=== PATIENT | female | born 1985 | race Native Hawaiian/Other Pacific Islander ===

== ENCOUNTER 2018-02-21 16:31 | Inpatient (IN) | payer OTHER, SELFPAY ==
[2018-02-21 17:09] LABS: #Basophils 0.1 thou/uL (0.0-0.2); #Eosinphils 0.3 thou/uL (0.0-0.7); #Monocytes 0.6 thou/uL (0.11-0.59); #Neutrophils 7.3 thou/uL (1.40-6.50); %Basophils 0.9 % (0.0-1.0); %Eosinophils 2.8 % (0.0-10.0); %Lymphocytes 19.3 % (21.0-51.0); %Monocytes 6.1 % (0.0-10.0); Hemoglobin 12.4 g/dL (12.0-16.0); Mean Corpuscular HGB CONC 34.6 g/dL (32.0-36.0); Mean Corpuscular Hemoglobin 30.7 pg (27.0-31.0); Mean Corpuscular Volume 88.8 fL (78.0-98.0); Mean Platelet Volume 6.9 fL (7.4-10.4); Platelet Count 367 thou/uL (130-400); RBC Distribution Width 11.6 % (11.5-14.5); Red Blood Cell (RBC) Count 4.05 mill/uL (4.20-5.40); White Blood Cell (WBC) Count 10.3 thou/uL (4.8-10.8)
[2018-02-21 17:31] LABS: ALT (SGPT) 9 U/L (8-55); AST (SGOT) 13 U/L (5-34); Albumin 3.7 g/dL (3.5-5.0); Alkaline Phosphatase 145 U/L (40-150); Anion Gap 14 mmol/L (10-20); BUN (Urea Nitrogen) 54 mg/dL (7.0-18.7); Bilirubin, Total 0.4 mg/dL (0.2-1.2); Calc. Creatinine Clearance 0 mL/min (70-130); Carbon Dioxide 15 mmol/L (22-29); Chloride 112 mmol/L (98-107); Estimated GFR-MDRD 7; Globulin 3.9 g/dL (2.4-3.5); Glucose 97 mg/dL (70-105); Potassium 5.2 mmol/L (3.5-5.1); Protein, Total 7.6 g/dL (6.0-8.3); Sodium 136 mmol/L (136-145)
[2018-02-21] MEDS ORDERED: cloNIDine 0.1 MG TAB ONE (21:20)
[2018-02-22] MEDS ORDERED: Acetaminophen 650 MG Suppository PR PRN (00:50)
[2018-02-22] MEDS ORDERED: Acetaminophen 325 MG TAB PO PRN (00:50)
[2018-02-22] MEDS ORDERED: Bisacodyl 5 MG TAB PO PRN (00:50)
[2018-02-22] MEDS ORDERED: Senokot S 8.6-50 MG TAB PO PRN (00:50)
[2018-02-22] MEDS ORDERED: Ondansetron PF 4 MG/2 ML Vial IVP PRN (00:50)
[2018-02-22] MEDS ORDERED: Ondansetron ODT 4 MG TAB PO PRN (00:50)
[2018-02-22] MEDS ORDERED: Labetalol HCl 100 MG/20 ML VIAL SLOW IVP PRN (01:33)
[2018-02-22 04:03] LABS: #Basophils 0.1 thou/uL (0.0-0.2); #Eosinphils 0.3 thou/uL (0.0-0.7); #Lymphocytes 2.8 thou/uL (1.20-3.40); #Monocytes 0.8 thou/uL (0.11-0.59); #Neutrophils 6.5 thou/uL (1.40-6.50); %Basophils 0.8 % (0.0-1.0); %Eosinophils 3.1 % (0.0-10.0); %Lymphocytes 26.3 % (21.0-51.0); %Monocytes 7.3 % (0.0-10.0); %Neutrophils 62.5 % (42.0-75.0); Hemoglobin 11.7 g/dL (12.0-16.0); Mean Corpuscular HGB CONC 34.7 g/dL (32.0-36.0); Mean Corpuscular Hemoglobin 30.9 pg (27.0-31.0); Mean Corpuscular Volume 88.9 fL (78.0-98.0); Mean Platelet Volume 6.8 fL (7.4-10.4); Platelet Count 314 thou/uL (130-400); RBC Distribution Width 11.6 % (11.5-14.5); White Blood Cell (WBC) Count 10.5 thou/uL (4.8-10.8)
[2018-02-22 04:20] LABS: Albumin 3.6 g/dL (3.5-5.0); Anion Gap 13 mmol/L (10-20); BUN (Urea Nitrogen) 56 mg/dL (7.0-18.7); BUN/Creatinine Ratio 8.26; Calc. Creatinine Clearance 0 mL/min (70-130); Calcium 8.2 mg/dL (7.8-10.44); Carbon Dioxide 16 mmol/L (22-29); Chloride 113 mmol/L (98-107); Estimated GFR-MDRD 7; Glucose 82 mg/dL (70-105); Phosphorus 5.9 mg/dL (2.3-4.7); Potassium 5.2 mmol/L (3.5-5.1); Sodium 137 mmol/L (136-145)
[2018-02-22] MEDS ORDERED: Heparin 5,000 UNITS/ML VIAL SC SCH (09:45)
--- NOTE | 2018-02-22 09:53 | ULT ---
BILATERAL RENAL ULTRASOUND: Date: 02/22/18 HISTORY: Nonworking left kidney with chronic kidney disease. TECHNIQUE: Multiplanar Song scale and color Doppler images were obtained in a renal ultrasound. FINDINGS: The left kidney was not visualized. The right kidney is normal in echogenicity, without hydronephrosis or calculus, and measures 12.2 cm in length. Limited visualization of the urinary bladder is unremarkable. IMPRESSION: Nonvisualization of the left kidney. POS: JAYDA
[2018-02-22] MEDS ORDERED: Sodium Bicarbonate 150 MEQ in Dextrose 5% in Water 1,000 ML IV SCH (11:00)
[2018-02-22] MEDS: Heparin 5,000 UNITS/ML VIAL SC SCH ×2 (12:51→21:02)
[2018-02-22] MEDS ORDERED: hydrALAZINE 20 MG/ML VIAL SLOW IVP PRN ×2 (12:53→16:14)
[2018-02-22] MEDS ORDERED: NIFEdipine XL 60 MG TAB PO SCH (13:00)
[2018-02-22 13:07] LABS: BHCG - Serum Negative (NEGATIVE); Pregs Control Background? CLEAR/WHITE (CLR/WHITE); Pregs Control Bar Appear? YES (CONTROL BAR)
--- NOTE | 2018-02-22 13:21 | HP ---
PRIMARY CARE PROVIDER: [facility] in [place]. CHIEF COMPLAINT: Abnormal labs. HISTORY OF PRESENT ILLNESS: Ms. Wade is a pleasant 32-year-old lady, who was seen at [facility] on February 22, 2018. She reports that she was living in [place] last February. At that time, she was hospitalized for nephrolithiasis. She reports having to undergo surgery for that. At that time, she was also told that she had renal failure. She moved recently to this area. She set up primary care with [facility]. About a week ago, she underwent blood work through the primary care provider. She was advised to see work study student. She saw work study student yesterday and was advised to go to the emergency room for further management. She denies any chest pain or shortness of breath. She denies any fevers or chills. She denies any nausea, vomiting, diarrhea, or abdominal pain. REVIEW OF SYSTEMS: All other systems reviewed and found to be negative. PAST MEDICAL HISTORY: Nephrolithiasis and renal failure. PAST SURGICAL HISTORY: Surgery for nephrolithiasis. SOCIAL HISTORY: The patient denies tobacco use, alcohol use, or recreational drug use. FAMILY HISTORY: Kidney disease in mother. ALLERGIES: NO KNOWN DRUG ALLERGIES. CURRENT MEDICATIONS: Coreg 12.5 mg two times a day. PHYSICAL EXAMINATION: GENERAL: Ms. Wade is awake and alert, not in acute distress. VITAL SIGNS: Blood pressure is 191/116, pulse 62, respiratory rate 16, and oxygen saturation 98% on room air. She is afebrile. HEENT: Eyes; no scleral icterus, no conjunctival pallor. ENT; moist mucosal membranes. No oropharyngeal erythema or exudates. NECK: Supple and nontender. Trachea is midline. RESPIRATORY: Accessory muscles of breathing are not active. CHEST: Wall movements are symmetric bilaterally. LUNGS: Clear to auscultation without wheeze, rhonchi, or crepitations. CARDIOVASCULAR: S1 and S2 heard, regular. Peripheral pulses palpable. No carotid bruit. No pericardial rub. ABDOMEN: Soft and nontender. Bowel sounds heard. No hepatomegaly. No splenomegaly. NEUROLOGIC: Cranial nerves 2 through 12 intact, deep tendon reflexes 2+. MUSCULOSKELETAL: Power is 5/5 in all four extremities. SKIN: No rashes or subcutaneous nodules. LYMPHATIC: No cervical lymphadenopathy. PSYCHIATRIC: Normal mood. Normal affect. The patient is oriented to person, place, and time. LABORATORY DATA: Ms. Wade's labs and investigations were reviewed. She had an electrocardiogram, which showed normal sinus rhythm, no ST changes to suggest an acute coronary syndrome. She also had bilateral renal ultrasound, with non-visualization of the left kidney. She has sodium of 137, mildly elevated potassium of 5.2, elevated blood urea nitrogen of 56, elevated creatinine of 6.78, normocytic anemia with hemoglobin of 11.7, and otherwise unremarkable CBC. ASSESSMENT AND PLAN: Ms. Wade is a pleasant 32-year-old lady, who was seen at [facility] on February 22, 2018. Her problem list includes; 1. End-stage renal disease: Ms. Wade is presenting with end-stage renal disease. She is known to have chronic kidney disease, previous parameters are unknown. She will be admitted to the hospital for further management. Nephrology Service is being consulted for possible dialysis. 2. Hyperkalemia: Mild, likely asymptomatic, we will recheck. 3. Hypertensive urgency: We will add p.r.n. antihypertensives to bring her blood pressure down. Many thanks for allowing me to participate in your patient's care. Please feel free to contact me with any questions or concerns. LEVEL OF RISK: Moderate. LEVEL OF COMPLEXITY: Moderate. Job ID: [id number] MTDD
[2018-02-22] MEDS ORDERED: hydrALAZINE 20 MG/ML VIAL ONE (15:31)
[2018-02-22] MEDS ORDERED: hydrALAZINE 25 MG TAB PO SCH (17:30)
[2018-02-22] MEDS: cloNIDine 0.1 MG TAB PO PRN (20:58)
[2018-02-22] MEDS: hydrALAZINE 25 MG TAB PO SCH (21:04)
--- NOTE | 2018-02-22 22:06 | CON ---
DATE OF CONSULTATION: 02/22/2018 NEPHROLOGY CONSULTATION CONSULTING PHYSICIAN: Dr. Patel. REASON FOR CONSULTATION: Acute kidney injury. REASON FOR ADMISSION: Abnormal labs. HISTORY OF PRESENT ILLNESS: This is a 32-year-old female with a history of hypertension and solitary kidney, came to the hospital with abnormal labs. The patient moved here from [place] and last seen her doctor in September, and she had lab work done, which showed creatinine of 6.8 and was told to come and see a forensic nurse and saw Dr. Alcantar yesterday, and since elevated creatinine, she was sent to the ER. The patient denies any symptoms. No nausea or vomiting. No chest pain or palpitation. The patient was told in the past that she does not have working left kidney and only had one solitary kidney, and she probably is close to dialysis. The patient did not follow up much for the last few months. No chest pain or palpitation. No fever or chills. PAST MEDICAL HISTORY: Positive for chronic kidney disease, solitary kidney, nephrolithiasis, and hypertension. PAST SURGICAL HISTORY: Denies any surgeries except for lithotripsies. HOME MEDICATIONS: Not known. ALLERGIES: NO KNOWN DRUG ALLERGIES. SOCIAL HISTORY: No smoking, alcohol, or illicit drug abuse. FAMILY HISTORY: Mom was on dialysis. REVIEW OF SYSTEMS: CONSTITUTIONAL: Negative for weight loss or gain, ability to conduct usual activities. SKIN: Negative for rash, itching. EYES: Negative for double vision, pain. ENT/MOUTH: Negative for nose bleeding, neck stiffness, pain, tenderness. CARDIOVASCULAR: Negative for palpitations, dyspnea on exertion, orthopnea. RESPIRATORY: Negative for shortness of breath, wheezing, cough, hemoptysis, fever or night sweats. GASTROINTESTINAL: Negative for poor appetite, abdominal pain, heartburn, nausea, vomiting, constipation, or diarrhea. GENITOURINARY: Negative for urgency, frequency, dysuria, nocturia. MUSCULOSKELETAL: Negative for pain, swelling. NEUROLOGIC/PSYCHIATRIC: Negative for anxiety, depression. ALLERGY/IMMUNOLOGIC: Negative for skin rash, bleeding tendency. PHYSICAL EXAMINATION: GENERAL: This is an obese female, in no apparent distress. VITAL SIGNS: Temperature 98.1, pulse 62, respiratory rate 18, blood pressure 183/110. HEENT: Atraumatic, normocephalic. Oral mucosa is moist NECK: Supple. CARDIOVASCULAR: S1, S2 heard. Rate and rhythm regular. RESPIRATORY: Clear to auscultation. GASTROINTESTINAL: Abdomen is soft. MUSCULOSKELETAL: No tenderness. No edema. DERMATOLOGIC: No skin rash. NEUROLOGIC: Alert and awake. PSYCHIATRIC: Normal mood and affect. LABORATORY DATA: Hemoglobin is 11.7. Potassium is 5.2, BUN is 56, creatinine is 6.7. ASSESSMENT AND PLAN: 1. Acute kidney injury on chronic kidney disease, stage V versus end-stage renal disease. We will hydrate her and monitor renal ultrasound with solitary kidney. 2. Hyperkalemia. 3. Metabolic acidosis. We will have bicarbonate. 4. Vitamin deficiency. We will start on vitamin D. 5. Secondary hyperparathyroidism. 6. Anemia, mild. Plan is to monitor labs. Might need renal replacement therapy, but the patient is hesitant to start on dialysis. We will follow. Thank you for the consult. Job ID: [id number] MTDD
[2018-02-23 05:35] LABS: Anion Gap 16 mmol/L (10-20); BUN (Urea Nitrogen) 57 mg/dL (7.0-18.7); Calc. Creatinine Clearance 24 mL/min (70-130); Calcium 7.9 mg/dL (7.8-10.44); Carbon Dioxide 18 mmol/L (22-29); Chloride 110 mmol/L (98-107); Estimated GFR-MDRD 7; Glucose 92 mg/dL (70-105); Potassium 4.6 mmol/L (3.5-5.1); Sodium 139 mmol/L (136-145)
[2018-02-23] MEDS ORDERED: Prevnar 13-Val Conj/PF 0.5 ML SYRINGE IM ONE (09:00)
--- NOTE | 2018-02-23 09:42 | CT ---
CT ABDOMEN AND PELVIS WITHOUT CONTRAST: Technique: Multiple contiguous axial images were obtained through the abdomen and pelvis without IV e nhancement. Oral contrast was not given. IMPRESSION: History of kidney stones and UTIs. Endstage renal disease. Comparison: No comparison CTs. Ultrasound of 02-22-18 is reviewed. FINDINGS: The lung bases are clear. Liver, spleen, and pancreas is unremarkable given the limitations of a nonc ontrast study. Gallbladder is mildly distended. There is at least one large peripherally calcified gallstone in the gallbladder fundus measuring 2.6 cm diameter. Adrenal glands are normal. The left kidney is atrophic. Right kidney shows compensatory hypertrophy. There is a low attenuation in the right kidney, poorly e valuated on this noncontrast study. There are at least three small nonobstructing calculi in the lowe r pole collecting structures of the right kidney, all measuring in the 3 mm range. No hydronephrosis identified. Mild stranding surrounding the renal pelvis and proximal right ureter and right perinephr ic stranding suggesting inflammatory process. Right ureter appears normal caliber. The urinary bladder is poorly distended and not well evaluated. Bladder wall appears prominent but is not adequately evaluated due to lack of distention. Small bowel loops normal caliber. Appendix appears normal. Aorta normal caliber. Nonspecific periaort ic lymph nodes are seen. There are aortocaval nodes measuring up to 1 cm. A lymph node just posterior to the right renal artery measures 1.5 cm. Images through the pelvis show an unremarkable uterus and adnexa. IMPRESSION: 1. Cholelithiasis. 2. Atrophic left kidney. 3. Right kidney appears edematous with perinephric stranding and stranding surrounding the proximal r ight ureter suggesting inflammatory change. There are at least three small nonobstructing calculi in the lower pole collecting structures of the right kidney. 4. Nonspecific periaortic and retroperitoneal lymph nodes as described. 5. Evidence of wall thickening, however, not well evaluated due to lack of distention. POS: JAYDA
[2018-02-23] MEDS: hydrALAZINE 25 MG TAB PO SCH ×2 (10:17→21:35)
[2018-02-23] MEDS: NIFEdipine XL 60 MG TAB PO SCH (10:18)
[2018-02-23] MEDS: Heparin 5,000 UNITS/ML VIAL SC SCH ×2 (10:18→21:35)
--- NOTE | 2018-02-23 11:58 | RAD ---
THREE VIEWS RIGHT FOOT: Date: 02-23-18 Comparison: None. History: Right foot pain. FINDINGS: There is mild degenerative change involving the first metatarsal phalangeal joint. There is mild degenerative changes of the first interphalangeal joint. There is prominent enthesophyte formation at the insertion of the Achilles tendon. There is enthesoph yte formation at the origin of the plantar aponeurosis. No acute fracture or dislocation. IMPRESSION: No acute osseous abnormality. Degenerative changes as detailed above. POS: C
[2018-02-23] MEDS ORDERED: predniSONE 20 MG TAB PO SCH (17:30)
[2018-02-23] MEDS ORDERED: CEFAZOLIN/Water 2 GM/20 ML SYRINGE SLOW IVP SCH (17:30)
--- NOTE | 2018-02-23 17:30 | PDOC.PN ---
- Subjective Encounter Start Date: 02/23/18 Encounter Start Time: 08:20 Pt seen for followup re:foot pain. c/o R foot pain since yesterday. - Objective Resuscitation Status - Order Detail: 02/23/18 13:46 Resuscitation Status Routine Resuscitation Status: DNAR: NO Resuscitation Discussed with: patient MAR Reviewed: Yes Vital Signs & Weight: Vital Signs (12 hours) Temp Pulse Resp BP BP Pulse Ox 02/23/18 10:18 98 166/99 H 02/23/18 10:17 98 166/99 H 02/23/18 08:27 99.2 F 98 16 132/88 100 02/23/18 08:00 98 Weight Weight 267 lb 3.2 oz I&O: 02/22/18 02/23/18 02/24/18 06:59 06:59 06:59 Intake Total 100 927 Output Total 500 Balance 100 427 Result Diagrams: 02/22/18 03:47 02/23/18 04:49 EKG Reviewed by me: Yes (Tele: sinus tachycardia) Phys Exam - Physical Examination Morbid obesity HEENT: moist MMs, sclera anicteric, oral pharynx no lesions, 2+ tonsils Neck: no nodes, no JVD, supple, full ROM Respiratory: clear to auscultation bilateral Cardiovascular: RRR, no rub S1, S2 Gastrointestinal: soft, non-tender, no distention, positive bowel sounds Lateral tenderness R foot Neurological: moves all 4 limbs Psychiatric: normal affect, A&O x 3 Dx/Plan (1) Foot pain Code(s): M79.673 - PAIN IN UNSPECIFIED FOOT Status: Acute Comment: nil acute on foot x-rays. Trial low-dose steroids, pt has a h/o gout and takes Aleve usually. (2) End stage renal disease Code(s): N18.6 - END STAGE RENAL DISEASE Status: Acute Comment: creatinine slightly improved - Plan * . Review of Systems - Review of Systems Constitutional: negative: fever, chills, sweats, weakness, malaise Cardiovascular: negative: chest pain, palpitations, orthopnea, paroxysmal nocturnal dyspnea, edema, light headedness Gastrointestinal: negative: Nausea, Vomiting, Abdominal Pain, Diarrhea, Constipation, Melena, Hematochezia Genitourinary: negative: Dysuria, Frequency, Incontinence, Hematuria, Retention Musculoskeletal: Foot Pain. negative: Neck Pain, Shoulder Pain, Arm Pain, Back Pain, Hand Pain, Leg Pain Skin: negative: Rash, Lesions, David, Bruising - Medications/Allergies Allergies/Adverse Reactions: Allergies Allergy/AdvReac Type Severity Reaction Status Date / Time No Known Allergies Allergy Unverified 02/22/18 01:25 Medications: Current Medications Acetaminophen (Tylenol) 650 mg PO Q4H PRN PRN Reason: Headache/Fever/Mild Pain (1-3) Last Admin: 02/22/18 20:59 Dose: 650 mg Acetaminophen (Tylenol) [address] Q4H PRN PRN Reason: Headache/Fever/Mild Pain (1-3) Bisacodyl (Dulcolax) 10 mg PO DAILYPRN PRN PRN Reason: Constipation Cefazolin Sodium (Ancef) 2 gm SLOW IVP ONCALL-OR [facility] Clonidine (Catapres) 0.1 mg PO Q4H PRN PRN Reason: Hypertension Last Admin: 02/22/18 20:58 Dose: 0.1 mg Ergocalciferol (Drisdol) 1.25 mg PO Q7DAYS [facility] Heparin Sodium (Porcine) (Heparin) 5,000 units SC BID [facility] Last Admin: 02/23/18 10:18 Dose: 5,000 units Hydralazine HCl (Apresoline) 10 mg SLOW IVP Q4H PRN PRN Reason: SBP GREATER THAN 160 Hydralazine HCl (Apresoline) 50 mg PO BID [facility] Last Admin: 02/23/18 10:17 Dose: 50 mg Nifedipine (Procardia Xl) 60 mg PO DAILY [facility] Last Admin: 02/23/18 10:18 Dose: 60 mg Non-Formulary Medication (Carvedilol [Coreg]) 12.5 mg PO BID [facility] Ondansetron HCl (Zofran Odt) 4 mg PO Q6H PRN PRN Reason: Nausea/Vomiting Ondansetron HCl (Zofran) 4 mg IVP Q6H PRN PRN Reason: Nausea/Vomiting Last Admin: 02/22/18 21:00 Dose: 4 mg Prednisone (Prednisone) 20 mg PO QAM[facility] Prednisone (Prednisone) 20 mg PO ONE [facility] Senna/Docusate Sodium (Senokot S) 2 tab PO BID PRN PRN Reason: Constipation Sodium Chloride (Flush - Normal Saline) 10 ml IVF Q12HR PRN PRN Reason: Saline Flush Last Admin: 02/23/18 10:19 Dose: 10 ml Sodium Chloride (Flush - Normal Saline) 10 ml IVF PRN PRN PRN Reason: Saline Flush Sodium Chloride (Flush - Normal Saline) 10 ml IVF PRN PRN PRN Reason: Saline Flush
[2018-02-23] MEDS: Acetaminophen 325 MG TAB PO PRN ×2 (17:34→23:55)
[2018-02-23] MEDS: predniSONE 20 MG TAB PO SCH (17:35)
[2018-02-23] MEDS ORDERED: CEFAZOLIN 2 GM/50 ML-DEXTROSE 2 GM in Premix Bag 1 BAG IVPB SCH (17:45)
--- NOTE | 2018-02-23 19:16 | PRG ---
DATE OF SERVICE: 02/23/2018 SUBJECTIVE: Patient was seen and examined at bedside and overnight events noted. Patient denies any shortness of breath or chest pain or palpitation. No history of nausea or vomiting or diarrhea or fever or chills or cramps. OBJECTIVE: GENERAL: This is an obese female, in no apparent distress. VITAL SIGNS: Temperature 99.2. Pulse 78. Respiratory rate . Blood pressure 132/88. HEENT: Atraumatic, normocephalic. Oral mucosa is moist NECK: Supple. CARDIOVASCULAR: S1, S2 heard. Rate and rhythm regular. RESPIRATORY: Clear to auscultation. GASTROINTESTINAL: Abdomen is soft. MUSCULOSKELETAL: No tenderness. No edema. DERMATOLOGIC: No skin rash. NEUROLOGIC: Alert and awake and oriented X3. No focal neurologic deficits. Moving all the extremities. PSYCHIATRIC: Mood and affect normal. LABORATORY DATA: Potassium is 4.6, BUN is 57, and creatinine is 6.5. ASSESSMENT AND PLAN: 1. End-stage renal disease with solitary kidney. Plan is to start her on dialysis. I had discussion with the patient and family, and the patient is agreeable to dialysis. We will contact Surgery for access placement. 2. Hyperkalemia. 3. Metabolic acidosis. 4. Vitamin D deficiency with secondary hyperparathyroidism. I will continue on vitamin D. 5. Anemia, mild. We will monitor. 6. Edema, controlled. Plan is to start her on dialysis. Case Management and Surgery consult placed. Job ID: [id number]
[2018-02-23] MEDS ORDERED: Tuberculin PPD 0.1 ML VIAL I-DERMAL SCH (20:00)
[2018-02-23] MEDS: Carvedilol 6.25 MG TAB PO SCH (21:35)
--- NOTE | 2018-02-23 22:12 | ULT ---
BILATERAL UPPER EXTREMITY VENOUS MAPPING 02/23/18 PROVIDED CLINICAL HISTORY: End-stage renal disease. RIGHT UPPER EXTREMITY BRACHIAL ARTERY: 4 mm RADIAL ARTERY: 3.2 mm ULNAR ARTERY: 1.9 mm CEPHALIC VEIN Proximal Arm: 4.2 mm Mid Arm: 4.4 mm Distal Arm: 3.8 mm Antecubital Fossa: 5.5 mm Proximal Forearm: 3.4 mm Mid Forearm: 3.0 mm Distal Forearm: 2.6 mm BASILIC VEIN Proximal Arm: 5.5 mm Mid Arm: 3.9 mm Distal Arm: 2.9 mm Antecubital Fossa: 2.6 mm Proximal Forearm: 2.7 mm Mid Forearm: 2.3 mm Distal Forearm: 2.3 mm LEFT UPPER EXTREMITY BRACHIAL ARTERY: 4.2 mm RADIAL ARTERY: 3.1 mm ULNAR ARTERY: 1.2 mm CEPHALIC VEIN Proximal Arm: 3.1 mm Mid Arm: 3.5 mm Distal Arm: 3.1 mm Antecubital Fossa: 3.7 mm Proximal Forearm: 2.3 mm Mid Forearm: 1.9 mm Distal Forearm: 1.6 mm BASILIC VEIN Proximal Arm: 4.2 mm Mid Arm: 3.6 mm Distal Arm: 2.9 mm Antecubital Fossa: Not compressible Proximal Forearm: 1.2 mm Mid Forearm: 1.1 mm Distal Forearm: 1.1 mm IMPRESSION: 1. Venous mapping as above. 2. Thrombus within the mid left basilic vein. POS: CHARITO
--- NOTE | 2018-02-24 01:37 | HP ---
HISTORY OF PRESENT ILLNESS: Marta Wade is a 32-year-old female, 5 foot 7 inches, 267 pounds, 41 BMI, single, lives alone, presents reporting that she has taken Motrin 3 to 4 times a day for the last several weeks because of foot pain. Foot x-ray on admission was unremarkable. She was found by primary care physician to have renal failure. She has a history of hypertension. Creatinine 6.51, BUN 7 , potassium 4.6. She has antecubital IV in place that I removed on entering the room. I have been asked by Dr. Lima to place hemodialysis access. ALLERGIES: NONE. SOCIAL HISTORY: Tobacco, none. Alcohol, rarely. MEDICATIONS: 1. Ibuprofen. 2. Coreg 12.5 mg b.i.d. PAST SURGICAL HISTORY: Noncontributory. PAST MEDICAL HISTORY: Hypertension, NSAID use frequently, renal failure, obesity morbid, metabolic syndrome. PHYSICAL EXAMINATION: VITAL SIGNS: Height 5 foot 7 inches, weight 267 pounds, 41 BMI. Temperature 99.2 degrees, heart rate 98, blood pressure 166/99. HEAD, EARS, EYES, NOSE, AND THROAT: Unremarkable. LUNGS: Clear to auscultation. CARDIAC: Regular rate and rhythm without murmur or gallop. ABDOMEN: Soft and nontender. EXTREMITIES: Palpable radial pulses bilaterally, antecubital IV removed left arm. ASSESSMENT AND PLAN: 1. Acute renal failure. We will plan on placement of hemodialysis catheter, cuffed tunneled, tomorrow after adequate n.p.o. status. We will plan on placement of a primary fistula in right or left arm, probably the left as she is right handed pending vein mapping. If the vein mapping is not available in the morning, we will postpone fistula placement till next week. We will plan placement of central line to preserve veins this hospitalization. She understands the risks and benefits and consents. 2. Metabolic syndrome. 3. Morbid obesity. 4. Hypertension. 5. Renal failure. 6. NSAID use. Job ID: [id number]
[2018-02-24] MEDS ORDERED: CEFAZOLIN 2 GM/50 ML-DEXTROSE 2 GM in Premix Bag 1 BAG IVPB SCH (01:45)
[2018-02-24 05:58] LABS: Anion Gap 18 mmol/L (10-20); BUN (Urea Nitrogen) 65 mg/dL (7.0-18.7); Calc. Creatinine Clearance 21 mL/min (70-130); Calcium 8.1 mg/dL (7.8-10.44); Carbon Dioxide 15 mmol/L (22-29); Chloride 111 mmol/L (98-107); Estimated GFR-MDRD 7; Glucose 95 mg/dL (70-105); Potassium 6.5 mmol/L (3.5-5.1); Sodium 137 mmol/L (136-145)
[2018-02-24 06:12] LABS: HBSAB Concentration 6.54 mIU/mL; HBSAg Index 0.19 S/CO (0-0.99); Hep B Core Total Ab Non-Reactive (NonReactive); Hep B Core Total Index 0.16 S/CO (0-0.79); Hep B Surf AB Non-Reactive (NonReactive); Hep B Surf Ag Non-Reactive S/CO (NonReactive); Hep C IgG Ab Non-Reactive (NonReactive); Hep C Index 0.09 S/CO (0-0.79)
[2018-02-24] MEDS: Carvedilol 6.25 MG TAB PO SCH ×2 (06:38→20:38)
[2018-02-24] MEDS: Heparin 5,000 UNITS/ML VIAL SC SCH ×2 (07:22→20:39)
[2018-02-24] MEDS: NIFEdipine XL 60 MG TAB PO SCH (07:22)
[2018-02-24] MEDS: hydrALAZINE 25 MG TAB PO SCH ×2 (07:22→20:39)
[2018-02-24] MEDS ORDERED: Ioversol 68 % 50 ML VIAL ONE (08:18)
[2018-02-24] MEDS ORDERED: Heparin 5,000 UNITS/ML VIAL ONE (08:18)
[2018-02-24] MEDS ORDERED: Protamine Sulfate 50 MG/5 ML VIAL ONE (08:18)
[2018-02-24] MEDS ORDERED: Sodium Chloride 0.9% 10 ML ONE (08:18)
[2018-02-24] MEDS ORDERED: Bupivacaine HCl 0.5%/Epinephrine 1:200,000/PF 30 ml Vial ONE (08:18)
[2018-02-24] MEDS ORDERED: Heparin 10,000 UNITS/1 ML VIAL ONE (08:18)
[2018-02-24] MEDS ORDERED: Lidocaine 2% w/Epinephrine 1:200K 20 ML VIAL ONE (08:18)
[2018-02-24] MEDS ORDERED: Lidocaine 2% PF 5 ML VIAL ONE (08:20)
[2018-02-24] MEDS ORDERED: PROPOFOL 20 ML ONE (08:48)
[2018-02-24] MEDS ORDERED: Fentanyl 100 MCG/2 ML VIAL ONE ×2 (08:48→11:18)
[2018-02-24] MEDS ORDERED: Sodium Chloride 0.9% 20 ML ONE (09:36)
[2018-02-24] MEDS ORDERED: traMADol HCl 50 MG TAB PO PRN (09:40)
[2018-02-24] MEDS ORDERED: Ondansetron PF 4 MG/2 ML Vial ONE (10:58)
[2018-02-24] MEDS ORDERED: PROPOFOL 200 MG/20 ML VIAL ONE (10:58)
[2018-02-24] MEDS ORDERED: Rocuronium Bromide 10 MG/ML (10ML VIAL) ONE (10:58)
[2018-02-24] MEDS ORDERED: PHENYLEPHRINE-NS 100 MCG/ML 10 ML SYRINGE ONE (10:58)
[2018-02-24] MEDS ORDERED: Glycopyrrolate 0.2 MG/ML 5 ML SYRINGE ONE (10:58)
[2018-02-24] MEDS ORDERED: Promethazine HCl 25 MG/ML VIAL SLOW IVP PRN (11:02)
[2018-02-24] MEDS ORDERED: Promethazine HCl 25 MG/ML VIAL IM PRN (11:02)
[2018-02-24] MEDS ORDERED: Ondansetron HCl/PF 4 MG/2 ML Vial IVP PRN (11:02)
--- NOTE | 2018-02-24 12:39 | RAD ---
PORTABLE CHEST: 02/24/2018 PROVIDED CLINICAL HISTORY: Central line placement. COMPARISON: None. FINDINGS: Evaluation is limited by patient body habitus. The lungs are hypoinflated. The cardiac silhouette a ppears within normal limits. A left IJ central line is noted with the tip overlying the expected loc ation of the right atrium. A right IJ hemodialysis is noted, the tips of which overly the expected l ocation of the SVC. No focal consolidation, pleural fluid, or pneumothorax apparent. IMPRESSION: Cardiomegaly without evidence for an acute cardiopulmonary process. POS: [facility]
--- NOTE | 2018-02-24 16:18 | PRG ---
DATE OF SERVICE: SUBJECTIVE: Patient was seen and examined at bedside and overnight events noted. Patient denies shortness of breath or cramps or chest pain or palpitation. No Nausea or vomiting or diarrhea or fever or chills OBJECTIVE: GENERAL: This is an obese female, in no apparent distress. VITAL SIGNS: Temperature 99.7, pulse 76, respiratory rate blood pressure 148/77. Musculoskeletal : No tenderness, No edema HEENT: Atraumatic normocephalic Neck: Supple Cardiovascular: S1S2 heard, Rate and rhythm regular Respiratory: Clear to auscultation Gastrointestinal: Abdomen is soft Dermatologic : No skin rash Neurologic: Alert and awake and oriented X3 No focal neurologic deficits. Moving all the extremities. Psychiatric: Mood and affect normal DIAGNOSTIC DATA: Potassium is 6.5, BUN is 65, creatinine is 7.1. ASSESSMENT AND PLAN: 1. End-stage renal disease with solitary kidney. Plan is to start her on dialysis. 2. Hyperkalemia with metabolic acidosis. 3. Vitamin D deficiency. 4. Anemia. 5. Edema. Plan is to start her on dialysis. I appreciate help from Surgery. Follow with Case Management for outpatient placement for dialysis. Job ID: [id number] [facility]
--- NOTE | 2018-02-24 17:27 | OP ---
DATE OF PROCEDURE: 02/24/2018 PREOPERATIVE DIAGNOSES: 1. End-stage renal disease, probably secondary to NSAID use. 2. Morbid obesity without diabetes or hypertension. POSTOPERATIVE DIAGNOSES: 1. End-stage renal disease, probably secondary to NSAID use. 2. Morbid obesity without diabetes or hypertension. PROCEDURES PERFORMED: 1. Right IJ cuffed tunneled hemodialysis catheter, precurved AngioDynamics cuffed tunneled. 2. Left IJ central line. 3. Ultrasound and fluoroscopy used for placement. 4. Left Lukas fistula, calibrated to 3.5 mm coronary dilator. ANESTHESIA: General, local 0.5% Marcaine with epinephrine, 30 mL mixed with 2% Xylocaine 10 mL. DESCRIPTION OF PROCEDURE: The patient was taken to the operating room, where under general anesthesia, neck and chest were prepared with ChloraPrep and draped in routine fashion. Local anesthetic mixture was infiltrated into the skin and subcutaneous tissue about the operative site. Using ultrasound guidance, the right and left internal jugular vein was cannulated with a trocar and catheter, and J-wire threaded. Trocar and catheter were removed. Skin was incised and enlarged sharply on both sides. Stab incision was made over the right chest. Using the tunneling device, the pre-curved AngioDynamics cuffed-tunneled hemodialysis catheter tunneled between 2 incisions, placed the fabric cuff beneath the skin access site over the chest, secured with 3-0 nylon suture. Sterile dressings applied. Using Seldinger technique, a left IJ triple-lumen catheter was placed, removing the J-wire, securing the catheter with 3-0 nylon. J-wire removed. Each port aspirated blood, flushed with saline solution. Sterile dressings applied. A [id number] size dilators were placed over the J-wire into the internal jugular vein on the right and removed. Dilator and Peel-Away sheath placed over the J-wire into the superior vena cava. J-wire and dilator removed. Catheter placed through the Peel-Away sheath. Peel-Away sheath removed. Fluoroscopic images revealed good line placement. Platysma was approximated with 4-0 Monocryl, skin with subdermal 4-0 Monocryl, and Lynd glue applied. Sterile dressings applied. Each port aspirated blood, flushed with saline solution and heparinized saline solution, 1000 units heparin per mL, indicating the volume of the port. Left upper extremity was prepared with ChloraPrep and draped in routine fashion. Incision was made between the cephalic vein and radial artery longitudinally in the left wrist, carried down to skin and subcutaneous tissue and excellent size cephalic vein and radial artery identified, dissected free, controlled with silastic vessel loops, dividing branches between 4-0 silk ties and clips, ligating the cephalic vein on the hand side with 2-0 silk. The patient was given 6000 units of heparin intravenously. After adequate circulation time, the cephalic vein, which had been spatulated was calibrated to a 3.5 mm coronary dilator without obstruction and then controlled with a bulldog clamp after it was flushed with heparinized saline solution. Radial artery clamped proximally and distally. Longitudinal arteriotomy was made for a 2.5 cm anastomosis between the end cephalic vein, which had been spatulated accordingly to the side radial artery with continuous suture of 6-0 Prolene. Branches were divided between 4-0 silk ties and clips. They were clipped to facilitate maturation. Good hemostasis was noted. The anastomosis was completed. Vascular inflow released and outflow interrogated with Doppler and noting good outflow signals. Subcutaneous tissue was approximated with 3-0 Monocryl, skin with subdermal 4-0 Monocryl. Local anesthetic was infiltrated in the skin and subcutaneous tissue about the operative site. The patient tolerated the procedure well. Job ID: [id number]
--- NOTE | 2018-02-24 17:40 | PDOC.PN ---
- Subjective Encounter Start Date: 02/24/18 Encounter Start Time: 17:39 - Objective Resuscitation Status - Order Detail: 02/23/18 13:46 Resuscitation Status Routine Resuscitation Status: DNAR: NO Resuscitation Discussed with: patient MAR Reviewed: Yes Vital Signs & Weight: Vital Signs (12 hours) Temp Pulse Resp BP BP BP BP 02/24/18 17:12 97.6 F 75 16 154/77 H 02/24/18 11:52 97.4 F L 59 L 15 141/77 H 02/24/18 07:22 98.1 F 59 L 16 123/72 02/24/18 06:38 142/77 H Pulse Ox 02/24/18 17:12 100 02/24/18 11:52 95 02/24/18 07:22 97 02/24/18 06:38 Weight Weight 265 lb 11.2 oz I&O: 02/23/18 02/24/18 02/25/18 06:59 06:59 06:59 Intake Total 927 1520 Output Total 500 400 Balance 427 1120 Result Diagrams: 02/22/18 03:47 02/24/18 05:01 EKG Reviewed by me: Yes (Tele: NSR) Phys Exam - Physical Examination Constitutional: NAD HEENT: moist MMs Neck: supple Respiratory: clear to auscultation bilateral Cardiovascular: RRR L IJ line, R IJ cuffed tunneled dialysis catheter, LUE AV fistula Neurological: moves all 4 limbs Psychiatric: normal affect Dx/Plan (1) Foot pain Code(s): M79.673 - PAIN IN UNSPECIFIED FOOT Status: Acute Comment: Improved with steroids, continue (2) End stage renal disease Code(s): N18.6 - END STAGE RENAL DISEASE Status: Acute Comment: pt has tunneled dialysis catheter and AV fistula and L IJ line placed today for initiation of dialysis. - Plan * . Review of Systems - Review of Systems Cardiovascular: negative: chest pain, orthopnea, paroxysmal nocturnal dyspnea, edema, light headedness Gastrointestinal: negative: Nausea, Vomiting, Abdominal Pain, Diarrhea, Constipation, Melena, Hematochezia - Medications/Allergies Allergies/Adverse Reactions: Allergies Allergy/AdvReac Type Severity Reaction Status Date / Time No Known Allergies Allergy Unverified 02/22/18 01:25 Medications: Current Medications Acetaminophen (Tylenol) 650 mg MT Q4H PRN PRN Reason: Headache/Fever/Mild Pain (1-3) Acetaminophen (Tylenol) 1,000 mg PO Q6H PRN PRN Reason: Moderate to Severe Pain (6-10) Bisacodyl (Dulcolax) 10 mg PO DAILYPRN PRN PRN Reason: Constipation Carvedilol (Coreg) 12.5 mg PO BID [facility] Last Admin: 02/24/18 06:38 Dose: 12.5 mg Clonidine (Catapres) 0.1 mg PO Q4H PRN PRN Reason: Hypertension Last Admin: 02/22/18 20:58 Dose: 0.1 mg Ergocalciferol (Drisdol) 1.25 mg PO Q7DAYS [facility] Heparin Sodium (Porcine) (Heparin) 5,000 units SC BID [facility] Last Admin: 02/24/18 07:22 Dose: Not Given Hydralazine HCl (Apresoline) 10 mg SLOW IVP Q4H PRN PRN Reason: SBP GREATER THAN 160 Hydralazine HCl (Apresoline) 50 mg PO BID [facility] Last Admin: 02/24/18 07:22 Dose: Not Given Cefazolin Sodium/Dextrose 2 gm (/ Device) 50 mls @ 100 mls/hr IVPB ONCALL-OR [facility] Stop: 02/24/18 17:46 Influenza Virus Vaccine Quadrival (Fluzone Quad [id number] Syringe) 0.5 ml IM .ONCE ONE Stop: 02/25/18 09:01 Nifedipine (Procardia Xl) 60 mg PO DAILY [facility] Last Admin: 02/24/18 07:22 Dose: Not Given Read Ppd Test Site 0 each PO 1999 [facility] Stop: 02/26/18 20:01 Ondansetron HCl (Zofran Odt) 4 mg PO Q6H PRN PRN Reason: Nausea/Vomiting Ondansetron HCl (Zofran) 4 mg IVP Q6H PRN PRN Reason: Nausea/Vomiting Last Admin: 02/22/18 21:00 Dose: 4 mg Pneumococcal 13-Valent Conj Vacc (Prevnar) 0.5 ml IM .ONCE ONE Stop: 02/25/18 09:01 Prednisone (Prednisone) 20 mg PO QAM-WM [facility] Last Admin: 02/23/18 17:35 Dose: 20 mg Senna/Docusate Sodium (Senokot S) 2 tab PO BID PRN PRN Reason: Constipation Sodium Chloride (Flush - Normal Saline) 10 ml IVF Q12HR PRN PRN Reason: Saline Flush Last Admin: 02/23/18 21:36 Dose: 10 ml Sodium Chloride (Flush - Normal Saline) 10 ml IVF PRN PRN PRN Reason: Saline Flush Sodium Chloride (Flush - Normal Saline) 10 ml IVF PRN PRN PRN Reason: Saline Flush Tramadol HCl (Ultram) 50 mg PO Q6H PRN PRN Reason: Pain Tramadol HCl (Ultram) 100 mg PO Q6H PRN PRN Reason: Pain
[2018-02-25] MEDS: traMADol HCl 50 MG TAB PO PRN ×3 (02:40→21:24)
[2018-02-25] MEDS: cloNIDine 0.1 MG TAB PO PRN (03:04)
[2018-02-25] MEDS ORDERED: Prevnar 13-Val Conj/PF 0.5 ML SYRINGE IM ONE (09:00)
[2018-02-25] MEDS: Heparin 5,000 UNITS/ML VIAL SC SCH ×2 (09:32→21:26)
[2018-02-25] MEDS: hydrALAZINE 25 MG TAB PO SCH ×2 (09:32→21:26)
[2018-02-25] MEDS: predniSONE 20 MG TAB PO SCH (09:32)
[2018-02-25] MEDS: NIFEdipine XL 60 MG TAB PO SCH (09:32)
[2018-02-25] MEDS: Carvedilol 6.25 MG TAB PO SCH ×2 (09:32→21:25)
[2018-02-25 10:49] LABS: Anion Gap 17 mmol/L (10-20); BUN (Urea Nitrogen) 48 mg/dL (7.0-18.7); Calc. Creatinine Clearance 22 mL/min (70-130); Calcium 7.8 mg/dL (7.8-10.44); Carbon Dioxide 18 mmol/L (22-29); Chloride 106 mmol/L (98-107); Estimated GFR-MDRD 7; Glucose 182 mg/dL (70-105); Potassium 4.7 mmol/L (3.5-5.1); Sodium 136 mmol/L (136-145)
[2018-02-25] MEDS ORDERED: Heparin 1,000 UNITS/ML VIAL ONE (11:11)
--- NOTE | 2018-02-25 13:58 | PDOC.PN ---
- Subjective Encounter Start Date: 02/25/18 Encounter Start Time: 09:20 Pt seen for followup re; end stage renal disease. Right foot pain better. - Objective Resuscitation Status - Order Detail: 02/23/18 13:46 Resuscitation Status Routine Resuscitation Status: DNAR: NO Resuscitation Discussed with: patient KOBI Reviewed: Yes Vital Signs & Weight: Vital Signs (12 hours) Temp Pulse Resp BP BP BP Pulse Ox 02/25/18 09:32 106 H 172/100 H 02/25/18 07:08 99.2 F 106 H 18 130/70 130/70 94 L 02/25/18 04:49 92 149/87 H 02/25/18 04:33 96 172/100 H 02/25/18 04:00 96 172/100 H 02/25/18 03:04 189/112 H 02/25/18 02:30 94 189/112 H Weight Weight 258 lb 6 oz I&O: 02/24/18 02/25/18 02/26/18 06:59 06:59 06:59 Intake Total 1520 970 Output Total 400 1800 Balance 1120 -830 Result Diagrams: 02/22/18 03:47 02/25/18 10:25 Additional Labs: labs reviewed by me Phys Exam - Physical Examination Constitutional: NAD HEENT: moist MMs Neck: supple Respiratory: clear to auscultation bilateral Cardiovascular: RRR Gastrointestinal: soft Neurological: moves all 4 limbs Psychiatric: normal affect Dx/Plan (1) End stage renal disease Code(s): N18.6 - END STAGE RENAL DISEASE Status: Acute Comment: Pt having dialysis today (2) Foot pain Code(s): M79.673 - PAIN IN UNSPECIFIED FOOT Status: Acute Comment: Improved with steroids - Plan * . Review of Systems - Review of Systems Cardiovascular: negative: chest pain, orthopnea, paroxysmal nocturnal dyspnea, edema, light headedness Gastrointestinal: negative: Nausea, Vomiting, Abdominal Pain, Diarrhea, Constipation, Melena, Hematochezia Musculoskeletal: Foot Pain - Medications/Allergies Allergies/Adverse Reactions: Allergies Allergy/AdvReac Type Severity Reaction Status Date / Time No Known Allergies Allergy Unverified 02/22/18 01:25 Medications: Current Medications Acetaminophen (Tylenol) 650 mg OR Q4H PRN PRN Reason: Headache/Fever/Mild Pain (1-3) Acetaminophen (Tylenol) 1,000 mg PO Q6H PRN PRN Reason: Moderate to Severe Pain (6-10) Bisacodyl (Dulcolax) 10 mg PO DAILYPRN PRN PRN Reason: Constipation Carvedilol (Coreg) 12.5 mg PO BID [facility] Last Admin: 02/25/18 09:32 Dose: 12.5 mg Clonidine (Catapres) 0.1 mg PO Q4H PRN PRN Reason: Hypertension Last Admin: 02/25/18 03:04 Dose: 0.1 mg Ergocalciferol (Drisdol) 1.25 mg PO Q7DAYS [facility] Heparin Sodium (Porcine) (Heparin) 5,000 units SC BID [facility] Last Admin: 02/25/18 09:32 Dose: 5,000 units Hydralazine HCl (Apresoline) 10 mg SLOW IVP Q4H PRN PRN Reason: SBP GREATER THAN 160 Last Admin: 02/25/18 04:33 Dose: 10 mg Hydralazine HCl (Apresoline) 50 mg PO BID [facility] Last Admin: 02/25/18 09:32 Dose: 50 mg Nifedipine (Procardia Xl) 60 mg PO DAILY [facility] Last Admin: 02/25/18 09:32 Dose: 60 mg Read Ppd Test Site 0 each PO 1999 [facility] Stop: 02/26/18 20:01 Ondansetron HCl (Zofran Odt) 4 mg PO Q6H PRN PRN Reason: Nausea/Vomiting Ondansetron HCl (Zofran) 4 mg IVP Q6H PRN PRN Reason: Nausea/Vomiting Last Admin: 02/22/18 21:00 Dose: 4 mg Prednisone (Prednisone) 20 mg PO QA-[facility] Last Admin: 02/25/18 09:32 Dose: 20 mg Senna/Docusate Sodium (Senokot S) 2 tab PO BID PRN PRN Reason: Constipation Sodium Chloride (Flush - Normal Saline) 10 ml IVF Q12HR PRN PRN Reason: Saline Flush Last Admin: 02/23/18 21:36 Dose: 10 ml Sodium Chloride (Flush - Normal Saline) 10 ml IVF PRN PRN PRN Reason: Saline Flush Sodium Chloride (Flush - Normal Saline) 10 ml IVF PRN PRN PRN Reason: Saline Flush Tramadol HCl (Ultram) 50 mg PO Q6H PRN PRN Reason: Pain Last Admin: 02/24/18 20:42 Dose: 50 mg Tramadol HCl (Ultram) 100 mg PO Q6H PRN PRN Reason: Pain Last Admin: 02/25/18 09:33 Dose: 100 mg
--- NOTE | 2018-02-25 20:43 | PRG ---
DATE OF SERVICE: 02/25/2018 SUBJECTIVE: Patient was seen and examined at bedside and overnight events noted. Patient denies shortness of breath or cramps or chest pain or palpitation. No Nausea or vomiting or diarrhea or fever or chills. OBJECTIVE: GENERAL: This is an obese female, in no apparent distress. VITAL SIGNS: Temperature 98.3, pulse 90, respiratory rate 19, and blood pressure 111/77. Musculoskeletal : No tenderness, No edema HEENT: Atraumatic normocephalic Neck: Supple Cardiovascular: S1S2 heard, Rate and rhythm regular Respiratory: Clear to auscultation Gastrointestinal: Abdomen is soft Dermatologic : No skin rash Neurologic: Alert and awake and oriented X3 No focal neurologic deficits. Moving all the extremities. Psychiatric: Mood and affect normal DIAGNOSTIC DATA: Potassium is 4.7, BUN is 48, and creatinine is 6.7. ASSESSMENT AND PLAN: 1. End-stage renal disease, continue dialysis. 2. Hyperkalemia. 3. Metabolic acidosis. 4. Vitamin D deficiency with secondary hyperparathyroidism. 5. Anemia. 6. Edema. She is tolerating dialysis well. We will continue dialysis. Follow up with Case Management for outpatient placement. Job ID: [id number] [facility]
--- NOTE | 2018-02-25 21:26 | EKG ---
Test Reason : Blood Pressure : / mmHG Vent. Rate : 079 BPM Atrial Rate : 079 BPM P-R Int : 160 ms QRS Dur : 096 ms QT Int : 438 ms P-R-T Axes : 029 -08 045 degrees QTc Int : 502 ms Normal sinus rhythm Moderate voltage criteria for LVH, may be normal variant Prolonged QT Abnormal ECG Confirmed by RENEA OHARA ([id number]), photo editor NEMO ROGERS ([id number]) on 02/25/2018 9:25:49 PM Referred By: Confirmed By:RENEA OHARA
[2018-02-26] MEDS: READ PPD TEST SITE PO SCH ×2 (02:37→19:55)
[2018-02-26] MEDS: hydrALAZINE 25 MG TAB PO SCH ×2 (09:41→21:05)
[2018-02-26] MEDS: Carvedilol 6.25 MG TAB PO SCH ×2 (09:42→21:05)
[2018-02-26] MEDS: predniSONE 20 MG TAB PO SCH (09:42)
[2018-02-26] MEDS: traMADol HCl 50 MG TAB PO PRN (09:42)
[2018-02-26] MEDS: NIFEdipine XL 60 MG TAB PO SCH (09:42)
[2018-02-26] MEDS: Heparin 5,000 UNITS/ML VIAL SC SCH ×2 (09:46→21:05)
--- NOTE | 2018-02-26 13:30 | PDOC.PN ---
- Subjective Encounter Start Date: 02/26/18 Encounter Start Time: 09:00 Pt seen for followup re: end stage renal disease. Foot pain improving, no complains. - Objective Resuscitation Status - Order Detail: 02/23/18 13:46 Resuscitation Status Routine Resuscitation Status: DNAR: NO Resuscitation Discussed with: patient Vital Signs & Weight: Vital Signs (12 hours) Temp Pulse Resp BP BP BP Pulse Ox 02/26/18 11:49 98.3 F 83 18 101/69 93 L 02/26/18 09:42 87 108/72 02/26/18 09:41 87 02/26/18 08:00 98.5 F 87 18 112/77 95 02/26/18 04:04 98.6 F 82 20 102/70 95 Weight Weight 257 lb 9 oz I&O: 02/25/18 02/26/18 02/27/18 06:59 06:59 06:59 Intake Total 970 1340 Output Total 1800 2000 Balance -830 -660 Result Diagrams: 02/22/18 03:47 02/25/18 10:25 Phys Exam - Physical Examination Morbid obesity HEENT: moist MMs Neck: supple Respiratory: clear to auscultation bilateral Cardiovascular: RRR Gastrointestinal: soft Neurological: moves all 4 limbs Psychiatric: normal affect Dx/Plan (1) End stage renal disease Code(s): N18.6 - END STAGE RENAL DISEASE Status: Acute Comment: Pt tolerated dialysis well yesterday (2) Foot pain Code(s): M79.673 - PAIN IN UNSPECIFIED FOOT Status: Acute Comment: continue steroids - Plan * . Review of Systems - Review of Systems Cardiovascular: negative: chest pain, palpitations, orthopnea, paroxysmal nocturnal dyspnea, edema, light headedness Musculoskeletal: Foot Pain. negative: Neck Pain, Shoulder Pain, Arm Pain, Back Pain, Hand Pain, Leg Pain - Medications/Allergies Allergies/Adverse Reactions: Allergies Allergy/AdvReac Type Severity Reaction Status Date / Time No Known Allergies Allergy Unverified 02/22/18 01:25 Medications: Current Medications Acetaminophen (Tylenol) 650 mg DC Q4H PRN PRN Reason: Headache/Fever/Mild Pain (1-3) Acetaminophen (Tylenol) 1,000 mg PO Q6H PRN PRN Reason: Moderate to Severe Pain (6-10) Bisacodyl (Dulcolax) 10 mg PO DAILYPRN PRN PRN Reason: Constipation Carvedilol (Coreg) 12.5 mg PO BID [facility] Last Admin: 02/26/18 09:42 Dose: 12.5 mg Clonidine (Catapres) 0.1 mg PO Q4H PRN PRN Reason: Hypertension Last Admin: 02/25/18 03:04 Dose: 0.1 mg Ergocalciferol (Drisdol) 1.25 mg PO Q7DAYS [facility] Heparin Sodium (Porcine) (Heparin) 5,000 units SC BID [facility] Last Admin: 02/26/18 09:46 Dose: 5,000 units Hydralazine HCl (Apresoline) 10 mg SLOW IVP Q4H PRN PRN Reason: SBP GREATER THAN 160 Last Admin: 02/25/18 04:33 Dose: 10 mg Hydralazine HCl (Apresoline) 50 mg PO BID [facility] Last Admin: 02/26/18 09:41 Dose: 50 mg Nifedipine (Procardia Xl) 60 mg PO DAILY [facility] Last Admin: 02/26/18 09:42 Dose: 60 mg Read Ppd Test Site 0 each PO 1999 [facility] Stop: 02/26/18 20:01 Last Admin: 02/26/18 02:37 Dose: Not Given Ondansetron HCl (Zofran Odt) 4 mg PO Q6H PRN PRN Reason: Nausea/Vomiting Ondansetron HCl (Zofran) 4 mg IVP Q6H PRN PRN Reason: Nausea/Vomiting Last Admin: 02/22/18 21:00 Dose: 4 mg Prednisone (Prednisone) 20 mg PO QAM-WM [facility] Last Admin: 02/26/18 09:42 Dose: 20 mg Senna/Docusate Sodium (Senokot S) 2 tab PO BID PRN PRN Reason: Constipation Sodium Chloride (Flush - Normal Saline) 10 ml IVF Q12HR PRN PRN Reason: Saline Flush Last Admin: 02/23/18 21:36 Dose: 10 ml Sodium Chloride (Flush - Normal Saline) 10 ml IVF PRN PRN PRN Reason: Saline Flush Sodium Chloride (Flush - Normal Saline) 10 ml IVF PRN PRN PRN Reason: Saline Flush Tramadol HCl (Ultram) 50 mg PO Q6H PRN PRN Reason: Pain Last Admin: 02/24/18 20:42 Dose: 50 mg Tramadol HCl (Ultram) 100 mg PO Q6H PRN PRN Reason: Pain Last Admin: 02/26/18 09:42 Dose: 100 mg
--- NOTE | 2018-02-26 18:56 | PRG ---
DATE OF SERVICE: 02/26/2018 SUBJECTIVE: Patient was seen and examined at bedside and overnight events noted. Patient denies any shortness of breath or chest pain or palpitation. No history of nausea or vomiting or diarrhea or fever or chills or cramps. OBJECTIVE: GENERAL: This is an obese female, in no apparent distress. VITAL SIGNS: Temperature 95, pulse 82, respiratory rate , and blood pressure 101/69. HEENT: Atraumatic, normocephalic. Oral mucosa is moist NECK: Supple. CARDIOVASCULAR: S1, S2 heard. Rate and rhythm regular. RESPIRATORY: Clear to auscultation. GASTROINTESTINAL: Abdomen is soft. MUSCULOSKELETAL: No tenderness. No edema. DERMATOLOGIC: No skin rash. NEUROLOGIC: Alert and awake and oriented X3. No focal neurologic deficits. Moving all the extremities. PSYCHIATRIC: Mood and affect normal. LABORATORY DATA: No labs drawn. ASSESSMENT AND PLAN: 1. End-stage renal disease, continue dialysis as tolerated. Repeat labs in the morning. 2. Hyperkalemia . 3. Anemia. 4. Edema. Recheck labs in the morning. Continue dialysis as tolerated. Follow case management for outpatient placement. Job ID: [id number]
[2018-02-27 05:16] LABS: Anion Gap 16 mmol/L (10-20); BUN (Urea Nitrogen) 67 mg/dL (7.0-18.7); Calc. Creatinine Clearance 20 mL/min (70-130); Calcium 7.4 mg/dL (7.8-10.44); Carbon Dioxide 21 mmol/L (22-29); Chloride 104 mmol/L (98-107); Estimated GFR-MDRD 6; Glucose 88 mg/dL (70-105); Potassium 4.3 mmol/L (3.5-5.1); Sodium 137 mmol/L (136-145)
[2018-02-27] MEDS: Acetaminophen 500 MG TAB PO PRN (05:18)
--- NOTE | 2018-02-27 08:18 | PRG ---
DATE OF SERVICE: 02/27/2018 Marta Wade is doing well this morning. Her left Lukas fistula does not have a thrill or bruit. She is undergoing dialysis. We would recommend more proximal left arm fistula. We will plan that later this morning. She understands risks, benefits, and consents. Job ID: [id number]
[2018-02-27] MEDS: predniSONE 20 MG TAB PO SCH (08:20)
[2018-02-27] MEDS: Carvedilol 6.25 MG TAB PO SCH ×2 (08:20→21:32)
[2018-02-27] MEDS: hydrALAZINE 25 MG TAB PO SCH ×2 (08:21→21:32)
[2018-02-27] MEDS: Heparin 5,000 UNITS/ML VIAL SC SCH ×2 (08:21→21:33)
[2018-02-27] MEDS: NIFEdipine XL 60 MG TAB PO SCH (08:21)
[2018-02-27] MEDS ORDERED: CEFAZOLIN 2 GM/50 ML BAG IVPB SCH (08:30)
--- NOTE | 2018-02-27 10:37 | PRG ---
DATE OF SERVICE: 02/27/2018 SUBJECTIVE: A 32-year-old female being seen for end-stage renal disease. The patient denied any nausea, vomiting, or chest pain. OBJECTIVE: See above. Awake, alert, in no acute distress. VITAL SIGNS: Afebrile. Pulse breathing 16, blood pressure 129/81. GENERAL APPEARANCE AND MENTAL STATUS: Fair. HEAD/NECK: Normocephalic. Atraumatic. EYES: EOMI. No deformity. EARS: Clear. No ulcers. NOSE: Intact. No lesions. MOUTH: Clear. No discharge. THROAT: Clear. No exudate. LUNGS: Clear. No crackles. CARDIAC: S1, S2. No rub. ABDOMEN: Benign. Bowel sounds positive. GENITALIA/RECTUM: Bay absent. BACK/EXTREMITIES: Edema 0+. NEUROLOGICAL: Alert and motor intact. SKIN: LYMPHATICS: LABORATORY DATA: Hemoglobin 11.7. Creatinine 7.46. ASSESSMENT: 1. Stage 6 chronic kidney disease, continue hemodialysis. 2. Hyperkalemia, stable. 3. Metabolic acidosis, stable. I will plan dialysis per schedule of Tuesday, Tuesday, Tuesday. Job ID: [id number]
[2018-02-27] MEDS ORDERED: Heparin 10,000 UNITS/ 10 ML VIAL ONE (11:00)
[2018-02-27] MEDS ORDERED: CEFAZOLIN 2 GM/50 ML BAG ONE (12:47)
[2018-02-27] MEDS ORDERED: Lidocaine 2% PF 5 ML VIAL ONE (12:48)
[2018-02-27] MEDS ORDERED: Protamine Sulfate 50 MG/5 ML VIAL ONE (12:48)
[2018-02-27] MEDS ORDERED: Bupivacaine HCl 0.5%/Epinephrine 1:200,000/PF 30 ml Vial ONE (12:48)
[2018-02-27] MEDS ORDERED: Heparin 5,000 UNITS/ML VIAL ONE (12:48)
[2018-02-27] MEDS ORDERED: Fentanyl 100 MCG/2 ML VIAL ONE ×2 (13:07→15:10)
[2018-02-27] MEDS ORDERED: Lidocaine 2% Jelly 5 ML TUBE ONE (13:16)
[2018-02-27] MEDS ORDERED: Promethazine HCl 25 MG/ML VIAL IM PRN (14:58)
[2018-02-27] MEDS ORDERED: Ondansetron HCl/PF 4 MG/2 ML Vial IVP PRN (14:58)
[2018-02-27] MEDS ORDERED: Promethazine HCl 25 MG/ML VIAL SLOW IVP PRN (14:58)
--- NOTE | 2018-02-27 15:57 | PDOC.PN ---
- Subjective Encounter Start Date: 02/27/18 Encounter Start Time: 09:20 Pt seen for followup re: ESRD. No complaints. - Objective Resuscitation Status - Order Detail: 02/23/18 13:46 Resuscitation Status Routine Resuscitation Status: DNAR: NO Resuscitation Discussed with: patient Vital Signs & Weight: Vital Signs (12 hours) Temp Pulse Resp BP Pulse Ox 02/27/18 08:07 97.8 F 89 15 166/79 H 97 02/27/18 04:20 98.2 F 81 20 129/81 94 L Weight Weight 265 lb I&O: 02/26/18 02/27/18 02/28/18 06:59 06:59 06:59 Intake Total 1340 930 Output Total 1999 Balance -660 930 Result Diagrams: 02/22/18 03:47 02/27/18 04:35 Phys Exam - Physical Examination Morbid obesity HEENT: moist MMs Neck: supple Respiratory: clear to auscultation bilateral Cardiovascular: RRR Gastrointestinal: soft Neurological: moves all 4 limbs Psychiatric: normal affect Dx/Plan (1) End stage renal disease Code(s): N18.6 - END STAGE RENAL DISEASE Status: Acute Comment: Initiated on dialysis (2) Foot pain Code(s): M79.673 - PAIN IN UNSPECIFIED FOOT Status: Acute Comment: will continue steroids - Plan * . Review of Systems - Review of Systems Respiratory: negative: Cough, Shortness of Breath, SOB with Excertion, Pleuritic Pain, Wheezing Cardiovascular: negative: chest pain, palpitations, orthopnea, paroxysmal nocturnal dyspnea, edema, light headedness - Medications/Allergies Allergies/Adverse Reactions: Allergies Allergy/AdvReac Type Severity Reaction Status Date / Time No Known Allergies Allergy Unverified 02/22/18 01:25 Medications: Current Medications Acetaminophen (Tylenol) 1,000 mg PO Q6H PRN PRN Reason: Moderate to Severe Pain (6-10) Last Admin: 02/27/18 05:18 Dose: 1,000 mg Bisacodyl (Dulcolax) 10 mg PO DAILYPRN PRN PRN Reason: Constipation Carvedilol (Coreg) 12.5 mg PO BID [facility] Last Admin: 02/27/18 08:20 Dose: Not Given Cefazolin Sodium/Dextrose (Ancef 2 Gm/50 Ml) 2 gm IVPB ONCALL-OR [facility] Stop: 02/27/18 23:59 Clonidine (Catapres) 0.1 mg PO Q4H PRN PRN Reason: Hypertension Last Admin: 02/25/18 03:04 Dose: 0.1 mg Ergocalciferol (Drisdol) 1.25 mg PO Q7DAYS [facility] Fentanyl (Pacu-Sublimaze) 50 mcg SLOW IVP Q10MIN PRN PRN Reason: Moderate to Severe Pain (6-10) Stop: 02/27/18 17:58 Heparin Sodium (Porcine) (Heparin) 5,000 units SC BID [facility] Last Admin: 02/27/18 08:21 Dose: Not Given Hydralazine HCl (Apresoline) 10 mg SLOW IVP Q4H PRN PRN Reason: SBP GREATER THAN 160 Last Admin: 02/25/18 04:33 Dose: 10 mg Hydralazine HCl (Apresoline) 50 mg PO BID [facility] Last Admin: 02/27/18 08:21 Dose: Not Given Nifedipine (Procardia Xl) 60 mg PO DAILY [facility] Last Admin: 02/27/18 08:21 Dose: Not Given Ondansetron HCl (Zofran Odt) 4 mg PO Q6H PRN PRN Reason: Nausea/Vomiting Ondansetron HCl (Zofran) 4 mg IVP Q6H PRN PRN Reason: Nausea/Vomiting Last Admin: 02/22/18 21:00 Dose: 4 mg Ondansetron HCl (Pacu-Zofran) 4 mg IVP ONE PRN PRN Reason: Nausea/Vomiting Stop: 02/27/18 17:58 Prednisone (Prednisone) 20 mg PO QA-[facility] Last Admin: 02/27/18 08:20 Dose: Not Given Promethazine HCl (Pacu-Phenergan) 6.25 mg SLOW IVP ONE PRN PRN Reason: Nausea/Vomiting Stop: 02/27/18 17:58 Promethazine HCl (Pacu-Phenergan) 6.25 mg IM ONE PRN PRN Reason: Nausea/Vomiting Stop: 02/27/18 17:58 Senna/Docusate Sodium (Senokot S) 2 tab PO BID PRN PRN Reason: Constipation Sodium Chloride (Flush - Normal Saline) 10 ml IVF Q12HR PRN PRN Reason: Saline Flush Last Admin: 02/23/18 21:36 Dose: 10 ml Sodium Chloride (Flush - Normal Saline) 10 ml IVF PRN PRN PRN Reason: Saline Flush Sodium Chloride (Flush - Normal Saline) 10 ml IVF PRN PRN PRN Reason: Saline Flush Tramadol HCl (Ultram) 50 mg PO Q6H PRN PRN Reason: Pain Last Admin: 02/24/18 20:42 Dose: 50 mg Tramadol HCl (Ultram) 100 mg PO Q6H PRN PRN Reason: Pain Last Admin: 02/26/18 09:42 Dose: 100 mg
[2018-02-27] MEDS ORDERED: Dexamethasone 20 MG/5 ML VIAL ONE (16:38)
[2018-02-27] MEDS ORDERED: Glycopyrrolate 0.2 MG/ML 5 ML SYRINGE ONE (16:38)
[2018-02-27] MEDS ORDERED: Rocuronium Bromide 10 MG/ML (10ML VIAL) ONE (16:38)
[2018-02-27] MEDS ORDERED: PHENYLEPHRINE-NS 100 MCG/ML 10 ML SYRINGE ONE (16:38)
[2018-02-27] MEDS ORDERED: Ondansetron PF 4 MG/2 ML Vial ONE (16:38)
[2018-02-27] MEDS ORDERED: PROPOFOL 200 MG/20 ML VIAL ONE (16:38)
[2018-02-27] MEDS ORDERED: Lidocaine 1% PF 5 ML VIAL ONE (16:38)
[2018-02-27] MEDS: traMADol HCl 50 MG TAB PO PRN (17:11)
--- NOTE | 2018-02-27 21:10 | OP ---
DATE OF PROCEDURE: 02/27/2018 PREOPERATIVE DIAGNOSES: End-stage renal disease, morbid obesity, thrombosed left Lukas fistula placed last week, just now started dialysis. POSTOPERATIVE DIAGNOSES: End-stage renal disease, morbid obesity, thrombosed left Lukas fistula placed last week, just now started dialysis. PROCEDURE: Left arm primary fistula, perforating branch antecubital vein to the proximal radial artery with outflow cephalic vein only. 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 ANESTHESIA: General, local 0.5% Marcaine with epinephrine 10 mL, volume used. DESCRIPTION OF PROCEDURE: The patient was taken to the operating room, where under general anesthesia, left upper extremity was prepared with ChloraPrep and draped in routine fashion. Incision was made in the proximal volar forearm longitudinally below the antecubital fossa, carried down through the skin and subcutaneous tissue, antecubital vein identified and dissected free. It was very small, but had an excellent size cephalic vein and a good-sized perforating branch antecubital vein. This was dissected free and branches were tied between clips and 4-0 silk ties and spatulated over branch points, interrogated with coronary dilators passing through a 4 mm coronary dye at the cephalic vein outflow without obstruction. The patient was given 6000 units of heparin intravenously. After adequate circulation time, the brachial ulnar of the proximal artery was clamped with vascular clamps. Longitudinal arteriotomy was made sharply for proximal radial artery, arteriotomy elongated for 2 cm anastomosis, created between the side artery to the end, perforating branch antecubital vein with continuous suture of 6-0 Prolene. After completing the anastomosis, vascular clamps were released and there was good outflow in the cephalic vein upper arm interrogated by Doppler. The patient was given 25 mg intravenously by Anesthesia. Good hemostasis was noted. Subcutaneous tissue was approximated with 3-0 Monocryl, skin with subdermal 4-0 Monocryl, and [place]-glue applied. Local anesthetic was infiltrated in the skin and subcutaneous tissue. The patient tolerated the procedure well. Job ID: [id number]
[2018-02-28] MEDS: predniSONE 20 MG TAB PO SCH (09:03)
[2018-02-28] MEDS: NIFEdipine XL 60 MG TAB PO SCH (09:03)
[2018-02-28] MEDS: hydrALAZINE 25 MG TAB PO SCH ×2 (09:04→20:13)
[2018-02-28] MEDS: Carvedilol 6.25 MG TAB PO SCH ×2 (09:04→20:13)
[2018-02-28] MEDS: Heparin 5,000 UNITS/ML VIAL SC SCH ×2 (09:04→20:13)
--- NOTE | 2018-02-28 10:08 | PRG ---
DATE OF SERVICE: 02/28/2018 SUBJECTIVE: Ms. Wade is doing well today. She has no complaints. Left arm fistula outflow cephalic vein upper arm, good thrill and bruit. Surgical wound looks healthy. At this point, she is doing well. I will see her as needed in this hospitalization. Please call if needed. She should follow up in my office in 3 to 4 weeks. Exercise left arm without restrictions and use. Call if needed in this hospitalization. Job ID: [id number]
[2018-02-28] MEDS: traMADol HCl 50 MG TAB PO PRN (10:59)
--- NOTE | 2018-02-28 12:51 | PRG ---
DATE OF SERVICE: 02/28/2018 SUBJECTIVE: A 32-year-old female being seen for end-stage renal disease. The patient denied any nausea, vomiting, or chest pain. OBJECTIVE: See above. Awake, alert, in no acute distress. VITAL SIGNS: Afebrile. Pulse 69, breathing 16, blood pressure 132/83. GENERAL APPEARANCE AND MENTAL STATUS: Fair. HEAD/NECK: Normocephalic. Atraumatic. EYES: EOMI. No deformity. EARS: Clear. No ulcers. NOSE: Intact. No lesions. MOUTH: Clear. No discharge. THROAT: Clear. No exudate. LUNGS: Clear. No crackles. CARDIAC: S1, S2. No rub. ABDOMEN: Benign. Bowel sounds positive. GENITALIA/RECTUM: Bay absent. BACK/EXTREMITIES: Edema 0+. NEUROLOGICAL: Alert and motor intact. SKIN: LYMPHATICS: LABORATORY DATA: Labs show hemoglobin 11.7. ASSESSMENT: 1. Stage 6 chronic kidney disease, plan dialysis. 2. Hypertension, stable. 3. Anemia, stable. 4. Outpatient discharge planning is in progress. Job ID: [id number]
--- NOTE | 2018-02-28 15:22 | PDOC.PN ---
- Subjective Encounter Start Date: 02/28/18 Encounter Start Time: 15:00 Pt seen for followup re; end stage renal disease. Feels well. Foot pain is better, has slight pain in right knee. - Objective Resuscitation Status - Order Detail: 02/23/18 13:46 Resuscitation Status Routine Resuscitation Status: DNAR: NO Resuscitation Discussed with: patient KOBI Reviewed: Yes Vital Signs & Weight: Vital Signs (12 hours) Temp Pulse Resp BP BP BP Pulse Ox 02/28/18 12:00 98.1 F 78 16 147/85 H 97 02/28/18 09:04 67 138/83 93 L 02/28/18 09:03 67 138/83 02/28/18 08:00 98.3 F 67 15 138/83 93 L 02/28/18 04:00 98.3 F 67 18 146/83 H 96 Weight Weight 259 lb 6.4 oz I&O: 02/27/18 02/28/18 03/01/18 06:59 06:59 06:59 Intake Total 930 1480 Balance 930 1480 Result Diagrams: 02/22/18 03:47 02/27/18 04:35 Additional Labs: Labs reviewed by me Phys Exam - Physical Examination Constitutional: NAD HEENT: moist MMs Neck: supple Respiratory: clear to auscultation bilateral Cardiovascular: RRR Gastrointestinal: soft Neurological: moves all 4 limbs Psychiatric: normal affect Dx/Plan (1) End stage renal disease Code(s): N18.6 - END STAGE RENAL DISEASE Status: Acute Comment: continue dialysis (2) Foot pain Code(s): M79.673 - PAIN IN UNSPECIFIED FOOT Status: Acute Comment: will discontinue steroids, start PRN tramadol - Plan * . Review of Systems - Review of Systems Cardiovascular: negative: chest pain, palpitations, orthopnea, paroxysmal nocturnal dyspnea, edema, light headedness Gastrointestinal: negative: Nausea, Vomiting, Abdominal Pain, Diarrhea, Constipation, Melena, Hematochezia Musculoskeletal: Other (right knee pain) - Medications/Allergies Allergies/Adverse Reactions: Allergies Allergy/AdvReac Type Severity Reaction Status Date / Time No Known Allergies Allergy Unverified 02/22/18 01:25 Medications: Current Medications Acetaminophen (Tylenol) 1,000 mg PO Q6H PRN PRN Reason: Moderate to Severe Pain (6-10) Last Admin: 02/27/18 05:18 Dose: 1,000 mg Bisacodyl (Dulcolax) 10 mg PO DAILYPRN PRN PRN Reason: Constipation Carvedilol (Coreg) 12.5 mg PO BID [facility] Last Admin: 02/28/18 09:04 Dose: 12.5 mg Clonidine (Catapres) 0.1 mg PO Q4H PRN PRN Reason: Hypertension Last Admin: 02/25/18 03:04 Dose: 0.1 mg Ergocalciferol (Drisdol) 1.25 mg PO Q7DAYS [facility] Heparin Sodium (Porcine) (Heparin) 5,000 units SC BID [facility] Last Admin: 02/28/18 09:04 Dose: 5,000 units Hydralazine HCl (Apresoline) 10 mg SLOW IVP Q4H PRN PRN Reason: SBP GREATER THAN 160 Last Admin: 02/25/18 04:33 Dose: 10 mg Hydralazine HCl (Apresoline) 50 mg PO BID [facility] Last Admin: 02/28/18 09:04 Dose: 50 mg Nifedipine (Procardia Xl) 60 mg PO DAILY [facility] Last Admin: 02/28/18 09:03 Dose: 60 mg Ondansetron HCl (Zofran Odt) 4 mg PO Q6H PRN PRN Reason: Nausea/Vomiting Ondansetron HCl (Zofran) 4 mg IVP Q6H PRN PRN Reason: Nausea/Vomiting Last Admin: 02/22/18 21:00 Dose: 4 mg Prednisone (Prednisone) 20 mg PO QAM[facility] Last Admin: 02/28/18 09:03 Dose: 20 mg Senna/Docusate Sodium (Senokot S) 2 tab PO BID PRN PRN Reason: Constipation Sodium Chloride (Flush - Normal Saline) 10 ml IVF Q12HR PRN PRN Reason: Saline Flush Last Admin: 02/23/18 21:36 Dose: 10 ml Sodium Chloride (Flush - Normal Saline) 10 ml IVF PRN PRN PRN Reason: Saline Flush Sodium Chloride (Flush - Normal Saline) 10 ml IVF PRN PRN PRN Reason: Saline Flush Tramadol HCl (Ultram) 50 mg PO Q6H PRN PRN Reason: Pain Last Admin: 02/24/18 20:42 Dose: 50 mg Tramadol HCl (Ultram) 100 mg PO Q6H PRN PRN Reason: Pain Last Admin: 02/28/18 10:59 Dose: 100 mg
[2018-02-28] MEDS: Acetaminophen 500 MG TAB PO PRN (19:34)
[2018-03-01] MEDS ORDERED: Ergocalciferol 1.25 MG(50,000 UNITS) CAP PO SCH (09:00)
--- NOTE | 2018-03-01 11:23 | PRG ---
DATE OF SERVICE: 03/01/2018 SUBJECTIVE: A 32-year-old female being seen for end-stage renal disease. The patient denies any nausea, vomiting, or chest pain. OBJECTIVE: GENERAL: The patient is awake and alert. VITAL SIGNS: Afebrile. Pulse 71, breathing 16, blood pressure 132/87. GENERAL APPEARANCE AND MENTAL STATUS: Fair. HEAD/NECK: Normocephalic. Atraumatic. EYES: EOMI. No deformity. EARS: Clear. No ulcers. NOSE: Intact. No lesions. MOUTH: Clear. No discharge. THROAT: Clear. No exudate. LUNGS: Clear. No crackles. CARDIAC: S1, S2. No rub. ABDOMEN: Benign. Bowel sounds positive. GENITALIA/RECTUM: Bay absent. BACK/EXTREMITIES: Edema 0+. NEUROLOGICAL: Alert and motor intact. SKIN: LYMPHATICS: LABORATORY DATA: Labs show hemoglobin 11.7. ASSESSMENT AND PLAN: 1. Stage 6 chronic kidney disease. Continue hemodialysis. 2. Hypertension, stable. 3. Anemia, stable. 4. Medication based on GFR appropriate. Job ID: [id number]
[2018-03-01] MEDS: traMADol HCl 50 MG TAB PO PRN (13:24)
--- NOTE | 2018-03-01 15:56 | PDOC.PN ---
- Subjective Encounter Start Date: 03/01/18 Encounter Start Time: 10:20 Pt seen for followup re: end stage renal diseadse. R knee and foot pain better. - Objective Resuscitation Status - Order Detail: 02/23/18 13:46 Resuscitation Status Routine Resuscitation Status: DNAR: NO Resuscitation Discussed with: patient Vital Signs & Weight: Vital Signs (12 hours) Temp Pulse Resp BP BP Pulse Ox 03/01/18 12:45 98.1 F 71 18 150/92 H 98 03/01/18 04:00 98.1 F 71 18 138/87 97 Weight Weight 263 lb 12.8 oz I&O: 02/28/18 03/01/18 03/02/18 06:59 06:59 06:59 Intake Total 1480 1130 Balance 1480 1130 Result Diagrams: 02/22/18 03:47 02/27/18 04:35 Phys Exam - Physical Examination Morbid obesity HEENT: moist MMs Neck: supple Respiratory: clear to auscultation bilateral Cardiovascular: RRR Neurological: moves all 4 limbs Psychiatric: normal affect Dx/Plan (1) End stage renal disease Code(s): N18.6 - END STAGE RENAL DISEASE Status: Acute Comment: initiated on dialysis (2) Foot pain Code(s): M79.673 - PAIN IN UNSPECIFIED FOOT Status: Acute Comment: continue PRN tramadol - Plan * . Review of Systems - Review of Systems Respiratory: negative: Cough, Shortness of Breath, SOB with Excertion, Pleuritic Pain, Wheezing Cardiovascular: negative: chest pain, palpitations, orthopnea, paroxysmal nocturnal dyspnea, edema, light headedness - Medications/Allergies Allergies/Adverse Reactions: Allergies Allergy/AdvReac Type Severity Reaction Status Date / Time No Known Allergies Allergy Unverified 02/22/18 01:25 Medications: Current Medications Acetaminophen (Tylenol) 1,000 mg PO Q6H PRN PRN Reason: Moderate to Severe Pain (6-10) Last Admin: 02/28/18 19:34 Dose: 1,000 mg Bisacodyl (Dulcolax) 10 mg PO DAILYPRN PRN PRN Reason: Constipation Carvedilol (Coreg) 12.5 mg PO BID [facility] Last Admin: 02/28/18 20:13 Dose: 12.5 mg Clonidine (Catapres) 0.1 mg PO Q4H PRN PRN Reason: Hypertension Last Admin: 02/25/18 03:04 Dose: 0.1 mg Ergocalciferol (Drisdol) 1.25 mg PO Q7DAYS [facility] Heparin Sodium (Porcine) (Heparin) 5,000 units SC BID [facility] Last Admin: 02/28/18 20:13 Dose: 5,000 units Hydralazine HCl (Apresoline) 10 mg SLOW IVP Q4H PRN PRN Reason: SBP GREATER THAN 160 Last Admin: 02/25/18 04:33 Dose: 10 mg Hydralazine HCl (Apresoline) 50 mg PO BID [facility] Last Admin: 02/28/18 20:13 Dose: 50 mg Nifedipine (Procardia Xl) 60 mg PO DAILY [facility] Last Admin: 02/28/18 09:03 Dose: 60 mg Ondansetron HCl (Zofran Odt) 4 mg PO Q6H PRN PRN Reason: Nausea/Vomiting Ondansetron HCl (Zofran) 4 mg IVP Q6H PRN PRN Reason: Nausea/Vomiting Last Admin: 02/22/18 21:00 Dose: 4 mg Senna/Docusate Sodium (Senokot S) 2 tab PO BID PRN PRN Reason: Constipation Sodium Chloride (Flush - Normal Saline) 10 ml IVF Q12HR PRN PRN Reason: Saline Flush Last Admin: 03/01/18 13:27 Dose: 10 ml Sodium Chloride (Flush - Normal Saline) 10 ml IVF PRN PRN PRN Reason: Saline Flush Sodium Chloride (Flush - Normal Saline) 10 ml IVF PRN PRN PRN Reason: Saline Flush Tramadol HCl (Ultram) 50 mg PO Q6H PRN PRN Reason: Pain Last Admin: 02/24/18 20:42 Dose: 50 mg Tramadol HCl (Ultram) 100 mg PO Q6H PRN PRN Reason: Pain Last Admin: 03/01/18 13:24 Dose: 100 mg
[2018-03-01] MEDS: Carvedilol 6.25 MG TAB PO SCH ×2 (16:08→20:53)
[2018-03-01] MEDS: Heparin 5,000 UNITS/ML VIAL SC SCH ×2 (16:09→20:53)
[2018-03-01] MEDS: hydrALAZINE 25 MG TAB PO SCH ×2 (16:09→20:53)
[2018-03-01] MEDS: NIFEdipine XL 60 MG TAB PO SCH (16:09)
[2018-03-01] MEDS: Acetaminophen 500 MG TAB PO PRN (18:36)
[2018-03-02] MEDS: Acetaminophen 500 MG TAB PO PRN ×2 (01:06→20:15)
[2018-03-02 06:44] LABS: Eosinophils 1 % (0-10); Hemoglobin 12.5 g/dL (12.0-16.0); Lymphocytes 25 % (21-51); MDiff Complete? YES; Mean Corpuscular HGB CONC 33.9 g/dL (32.0-36.0); Mean Corpuscular Hemoglobin 30.5 pg (27.0-31.0); Mean Corpuscular Volume 89.8 fL (78.0-98.0); Mean Platelet Volume 7.4 fL (7.4-10.4); Monocytes 13 % (0-10); Neutrophil 61 % (42-75); Platelet Count 339 thou/uL (130-400); Platelet Morphology Comment Appears Adequate; RBC Distribution Width 11.1 % (11.5-14.5); Red Blood Cell (RBC) Count 4.09 mill/uL (4.20-5.40); White Blood Cell (WBC) Count 17.6 thou/uL (4.8-10.8)
[2018-03-02] MEDS: NIFEdipine XL 60 MG TAB PO SCH (08:42)
[2018-03-02] MEDS: Heparin 5,000 UNITS/ML VIAL SC SCH ×2 (08:42→20:15)
[2018-03-02] MEDS: hydrALAZINE 25 MG TAB PO SCH ×2 (08:43→20:15)
[2018-03-02] MEDS: Carvedilol 6.25 MG TAB PO SCH ×2 (08:43→20:15)
[2018-03-02] MEDS ORDERED: Ondansetron PF 4 MG/2 ML Vial IVP SCH (09:45)
--- NOTE | 2018-03-02 10:52 | PRG ---
DATE OF SERVICE: 03/02/2018 SUBJECTIVE: A 32-year-old female is being seen for end-stage renal disease. The patient denies nausea, vomiting, or chest pain. OBJECTIVE: GENERAL: Awake and alert. VITAL SIGNS: Afebrile, pulse 81, breathing 16, blood pressure 146/87. GENERAL APPEARANCE AND MENTAL STATUS: Fair. HEAD/NECK: Normocephalic. Atraumatic. EYES: EOMI. No deformity. EARS: Clear. No ulcers. NOSE: Intact. No lesions. MOUTH: Clear. No discharge. THROAT: Clear. No exudate. LUNGS: Clear. No crackles. CARDIAC: S1, S2. No rub. ABDOMEN: Benign. Bowel sounds positive. GENITALIA/RECTUM: Bay absent. BACK/EXTREMITIES: Edema 0+. NEUROLOGICAL: Alert and motor intact. LABORATORY DATA: Hemoglobin 12.5. ASSESSMENT AND RECOMMENDATION: 1. Stage 6 chronic kidney disease. Continue dialysis. 2. Hypertension, stable. 3. Anemia, stable. 4. Medication based on glomerular filtration rate, appropriate. Job ID: [id number]
[2018-03-02] MEDS: traMADol HCl 50 MG TAB PO PRN (10:55)
[2018-03-02 12:35] LABS: INR-International Normal Ratio 1.1; PTT 35.3 SEC (22.9-36.1); Prothrombin Time 14.6 SEC (12.0-14.7)
[2018-03-02 12:36] LABS: D-Dimer Test 2.06 *mcg/mL (0.27-0.43)
--- NOTE | 2018-03-02 12:38 | PRG ---
DATE OF SERVICE: 03/02/2018 Ms. Wade is doing well after more proximal left arm fistula 02/27/2018. She has a good thrill and bruit in her antecubital area. Nurses called me this morning, concerned that they could not hear a bruit or thrill, but after lying down from a sitting position, they were able to hear a signal. I evaluated the left arm with the stethoscope, heard a good bruit and Doppler had a good Doppler outflow signal of her cephalic vein. Considering she did thrombose her left Lukas fistula, when we felt that was of good caliber, I did order a hypercoagulable thrombosis panel. At this point, I have recommended that she exercise the left arm and use it without restriction. No restrictions on weight lifting or activity. I would recommend she see me in the office in 3 to 4 weeks. At this point, I will see her as needed in this hospitalization. Please call, if necessary. Job ID: [id number]
[2018-03-02 14:00] VITALS: BMI 41.3
--- NOTE | 2018-03-02 17:23 | PDOC.PN ---
- Subjective Encounter Start Date: 03/02/18 Encounter Start Time: 09:40 Pt seen for followup re: end stage renal disease. c/o nausea. No chest pain. - Objective Resuscitation Status - Order Detail: 02/23/18 13:46 Resuscitation Status Routine Resuscitation Status: DNAR: NO Resuscitation Discussed with: patient Vital Signs & Weight: Vital Signs (12 hours) Temp Pulse Resp BP BP Pulse Ox 03/02/18 11:51 130/87 03/02/18 08:00 98.9 F 94 16 146/87 H 93 L Weight Admit Weight 266 lb 12.8 oz Weight 263 lb 12.8 oz I&O: 03/01/18 03/02/18 03/03/18 06:59 06:59 06:59 Intake Total 1130 1200 240 Balance 1130 1200 240 Result Diagrams: 03/02/18 05:50 02/27/18 04:35 Phys Exam - Physical Examination Constitutional: NAD HEENT: moist MMs Neck: supple Respiratory: clear to auscultation bilateral Cardiovascular: RRR Gastrointestinal: soft Neurological: moves all 4 limbs Psychiatric: normal affect Skin: no rash Dx/Plan (1) End stage renal disease Code(s): N18.6 - END STAGE RENAL DISEASE Status: Acute Comment: started on M -W-F dialysis (2) Foot pain Code(s): M79.673 - PAIN IN UNSPECIFIED FOOT Status: Acute Comment: on PRN tramadol (3) Nausea Code(s): R11.0 - NAUSEA Status: Acute Comment: PRN IV Zofran - Plan * . Review of Systems - Review of Systems Cardiovascular: negative: chest pain, palpitations, orthopnea, paroxysmal nocturnal dyspnea, edema, light headedness Gastrointestinal: Nausea. negative: Vomiting, Abdominal Pain, Diarrhea, Constipation, Melena, Hematochezia - Medications/Allergies Allergies/Adverse Reactions: Allergies Allergy/AdvReac Type Severity Reaction Status Date / Time No Known Allergies Allergy Unverified 02/22/18 01:25 Medications: Current Medications Acetaminophen (Tylenol) 1,000 mg PO Q6H PRN PRN Reason: Moderate to Severe Pain (6-10) Last Admin: 03/02/18 01:06 Dose: 1,000 mg Bisacodyl (Dulcolax) 10 mg PO DAILYPRN PRN PRN Reason: Constipation Carvedilol (Coreg) 12.5 mg PO BID [facility] Last Admin: 03/02/18 08:43 Dose: 12.5 mg Clonidine (Catapres) 0.1 mg PO Q4H PRN PRN Reason: Hypertension Last Admin: 02/25/18 03:04 Dose: 0.1 mg Ergocalciferol (Drisdol) 1.25 mg PO Q7DAYS [facility] Last Admin: 03/01/18 16:09 Dose: Not Given Heparin Sodium (Porcine) (Heparin) 5,000 units SC BID [facility] Last Admin: 03/02/18 08:42 Dose: 5,000 units Hydralazine HCl (Apresoline) 10 mg SLOW IVP Q4H PRN PRN Reason: SBP GREATER THAN 160 Last Admin: 02/25/18 04:33 Dose: 10 mg Hydralazine HCl (Apresoline) 50 mg PO BID [facility] Last Admin: 03/02/18 08:43 Dose: 50 mg Nifedipine (Procardia Xl) 60 mg PO DAILY [facility] Last Admin: 03/02/18 08:42 Dose: 60 mg Ondansetron HCl (Zofran Odt) 4 mg PO Q6H PRN PRN Reason: Nausea/Vomiting Ondansetron HCl (Zofran) 4 mg IVP Q6H PRN PRN Reason: Nausea/Vomiting Last Admin: 02/22/18 21:00 Dose: 4 mg Senna/Docusate Sodium (Senokot S) 2 tab PO BID PRN PRN Reason: Constipation Sodium Chloride (Flush - Normal Saline) 10 ml IVF Q12HR PRN PRN Reason: Saline Flush Last Admin: 03/01/18 13:27 Dose: 10 ml Sodium Chloride (Flush - Normal Saline) 10 ml IVF PRN PRN PRN Reason: Saline Flush Sodium Chloride (Flush - Normal Saline) 10 ml IVF PRN PRN PRN Reason: Saline Flush Tramadol HCl (Ultram) 50 mg PO Q6H PRN PRN Reason: Pain Last Admin: 02/24/18 20:42 Dose: 50 mg Tramadol HCl (Ultram) 100 mg PO Q6H PRN PRN Reason: Pain Last Admin: 03/02/18 10:55 Dose: 100 mg
[2018-03-03] MEDS: NIFEdipine XL 60 MG TAB PO SCH (08:02)
[2018-03-03] MEDS: Heparin 5,000 UNITS/ML VIAL SC SCH ×2 (08:02→20:59)
[2018-03-03] MEDS: hydrALAZINE 25 MG TAB PO SCH ×2 (08:02→21:00)
[2018-03-03] MEDS: Carvedilol 6.25 MG TAB PO SCH ×2 (08:03→20:59)
[2018-03-03 10:36] LABS: Protein C Activity 103 % (78-152)
--- NOTE | 2018-03-03 11:41 | PRG ---
DATE OF SERVICE: 03/03/2018 SUBJECTIVE: A 32-year-old female being seen for end-stage renal disease. The patient denies any nausea, vomiting, or chest pain. OBJECTIVE: GENERAL: The patient is awake and alert. VITAL SIGNS: Afebrile, pulse 75, breathing 16, and blood pressure 122/85. GENERAL APPEARANCE AND MENTAL STATUS: Fair. HEAD/NECK: Normocephalic. Atraumatic. EYES: EOMI. No deformity. EARS: Clear. No ulcers. NOSE: Intact. No lesions. MOUTH: Clear. No discharge. THROAT: Clear. No exudate. LUNGS: Clear. No crackles. CARDIAC: S1, S2. No rub. ABDOMEN: Benign. Bowel sounds positive. GENITALIA/RECTUM: Bay absent. BACK/EXTREMITIES: Edema 0+. NEUROLOGICAL: Alert and motor intact. LABORATORY DATA: Hemoglobin 12.5. ASSESSMENT AND PLAN: 1. Stage 6 chronic kidney disease, on hemodialysis. 2. Hypertension, stable. 3. Anemia, stable. 4. Medication based on GFR appropriate. Job ID: [id number]
--- NOTE | 2018-03-03 12:39 | PDOC.PN ---
- Subjective Encounter Start Date: 03/03/18 Encounter Start Time: 10:00 Subjective: seen 7 examined in dialysis -: c/o leg pain and weakness - Objective Resuscitation Status - Order Detail: 02/23/18 13:46 Resuscitation Status Routine Resuscitation Status: DNAR: NO Resuscitation Discussed with: patient KOBI Reviewed: Yes Vital Signs & Weight: Vital Signs (12 hours) Temp Pulse Resp BP BP Pulse Ox 03/03/18 08:03 115/80 03/03/18 08:02 105 H 03/03/18 08:00 93 L 03/03/18 07:36 99.9 F H 105 H 18 122/85 93 L Weight Admit Weight 266 lb 12.8 oz Weight 263 lb 12.8 oz I&O: 03/02/18 03/03/18 03/04/18 06:59 06:59 06:59 Intake Total 1200 720 240 Balance 1200 720 240 Result Diagrams: 03/04/18 12:04 02/27/18 04:35 Additional Labs: Laboratory Tests 03/02/18 03/02/18 12:03 12:03 D-Dimer 2.06 H Homocysteine 25.88 H Phys Exam - Physical Examination Constitutional: NAD keeps eyes closed & does not participate in discussion much HEENT: PERRLA, moist MMs, sclera anicteric, oral pharynx no lesions Neck: no nodes, no JVD, supple, full ROM Respiratory: no wheezing, no rales, no rhonchi, clear to auscultation bilateral Cardiovascular: RRR, no significant murmur Gastrointestinal: soft, non-tender, no distention, positive bowel sounds Musculoskeletal: no edema, pulses present Neurological: non-focal, normal sensation, moves all 4 limbs Psychiatric: normal affect, A&O x 3 Skin: no rash Dx/Plan (1) Acute worsening of stage 4 chronic kidney disease Code(s): N18.4 - CHRONIC KIDNEY DISEASE, STAGE 4 (SEVERE) Status: Acute (2) Foot pain Code(s): M79.673 - PAIN IN UNSPECIFIED FOOT Status: Acute Comment: on PRN tramadol - Plan DVT proph w/SCDs Outpt HD set up.DC when feels better.today or tomorrow -: WBC counts higher.recheck -: Hypercoagulable panel testing sent. follow up bill antony as an OP -: stable.supportive care * . Review of Systems - Review of Systems Constitutional: weakness, malaise. negative: fever, chills, sweats, other ENT: negative: Ear Pain, Ear Discharge, Nose Pain, Nose Discharge, Nose Congestion, Mouth Pain, Mouth Swelling, Throat Pain, Throat Swelling, Other Respiratory: negative: Cough, Dry, Shortness of Breath, Hemoptysis, SOB with Excertion, Pleuritic Pain, Sputum, Wheezing Cardiovascular: negative: chest pain, palpitations, orthopnea, paroxysmal nocturnal dyspnea, edema, light headedness, other Gastrointestinal: negative: Nausea, Vomiting, Abdominal Pain, Diarrhea, Constipation, Melena, Hematochezia, Other Genitourinary: negative: Dysuria, Frequency, Incontinence, Hematuria, Retention , Other Musculoskeletal: Leg Pain. negative: Neck Pain, Shoulder Pain, Arm Pain, Back Pain, Hand Pain, Foot Pain, Other Neurological: negative: Weakness, Numbness, Incoordination, Change in Speech, Confusion, Seizures, Other - Medications/Allergies Allergies/Adverse Reactions: Allergies Allergy/AdvReac Type Severity Reaction Status Date / Time No Known Allergies Allergy Unverified 02/22/18 01:25 Medications: Current Medications Acetaminophen (Tylenol) 1,000 mg PO Q6H PRN PRN Reason: Moderate to Severe Pain (6-10) Last Admin: 03/02/18 20:15 Dose: 1,000 mg Bisacodyl (Dulcolax) 10 mg PO DAILYPRN PRN PRN Reason: Constipation Carvedilol (Coreg) 12.5 mg PO BID [facility] Last Admin: 03/03/18 08:03 Dose: 12.5 mg Clonidine (Catapres) 0.1 mg PO Q4H PRN PRN Reason: Hypertension Last Admin: 02/25/18 03:04 Dose: 0.1 mg Ergocalciferol (Drisdol) 1.25 mg PO Q7DAYS [facility] Last Admin: 03/01/18 16:09 Dose: Not Given Heparin Sodium (Porcine) (Heparin) 5,000 units SC BID [facility] Last Admin: 03/03/18 08:02 Dose: 5,000 units Hydralazine HCl (Apresoline) 10 mg SLOW IVP Q4H PRN PRN Reason: SBP GREATER THAN 160 Last Admin: 02/25/18 04:33 Dose: 10 mg Hydralazine HCl (Apresoline) 50 mg PO BID [facility] Last Admin: 03/03/18 08:02 Dose: 50 mg Nifedipine (Procardia Xl) 60 mg PO DAILY [facility] Last Admin: 03/03/18 08:02 Dose: 60 mg Ondansetron HCl (Zofran Odt) 4 mg PO Q6H PRN PRN Reason: Nausea/Vomiting Ondansetron HCl (Zofran) 4 mg IVP Q6H PRN PRN Reason: Nausea/Vomiting Last Admin: 02/22/18 21:00 Dose: 4 mg Senna/Docusate Sodium (Senokot S) 2 tab PO BID PRN PRN Reason: Constipation Sodium Chloride (Flush - Normal Saline) 10 ml IVF Q12HR PRN PRN Reason: Saline Flush Last Admin: 03/01/18 13:27 Dose: 10 ml Sodium Chloride (Flush - Normal Saline) 10 ml IVF PRN PRN PRN Reason: Saline Flush Sodium Chloride (Flush - Normal Saline) 10 ml IVF PRN PRN PRN Reason: Saline Flush Tramadol HCl (Ultram) 50 mg PO Q6H PRN PRN Reason: Pain Last Admin: 02/24/18 20:42 Dose: 50 mg Tramadol HCl (Ultram) 100 mg PO Q6H PRN PRN Reason: Pain Last Admin: 03/02/18 10:55 Dose: 100 mg
[2018-03-03] MEDS: traMADol HCl 50 MG TAB PO PRN (13:02)
[2018-03-03 13:25] LABS: Cardiolipin IgA Ab 1.9 APL-U/mL (<14 Negative); Cardiolipin IgG Ab 0.6 GPL-U/mL (<10 Negative); EliA APS New Method **** NEW METHOD ****
[2018-03-03] MEDS ORDERED: Heparin 10,000 UNITS/ 10 ML VIAL ONE (15:00)
[2018-03-03] MEDS: Acetaminophen 500 MG TAB PO PRN (18:07)
[2018-03-04] MEDS: NIFEdipine XL 60 MG TAB PO SCH (08:18)
[2018-03-04] MEDS: Heparin 5,000 UNITS/ML VIAL SC SCH ×2 (08:18→20:17)
[2018-03-04] MEDS: hydrALAZINE 25 MG TAB PO SCH ×2 (08:18→20:17)
[2018-03-04] MEDS: Carvedilol 6.25 MG TAB PO SCH ×2 (08:18→20:16)
[2018-03-04] MEDS ORDERED: Colchicine 0.3 MG TAB PO SCH ×2 (09:20→09:22)
[2018-03-04 12:22] LABS: Hemoglobin 12.8 g/dL (12.0-16.0)
--- NOTE | 2018-03-04 12:33 | PRG ---
DATE OF SERVICE: 03/04/2018 SUBJECTIVE: A 32-year-old female being seen for end-stage renal disease. The patient denies any nausea, vomiting, or chest pain. OBJECTIVE: GENERAL: The patient is awake and alert, in no acute distress. VITAL SIGNS: Afebrile. Pulse 99, breathing 16, blood pressure 90/59. GENERAL APPEARANCE AND MENTAL STATUS: Fair. HEAD/NECK: Normocephalic. Atraumatic. EYES: EOMI. No deformity. EARS: Clear. No ulcers. NOSE: Intact. No lesions. MOUTH: Clear. No discharge. THROAT: Clear. No exudate. LUNGS: Clear. No crackles. CARDIAC: S1, S2. No rub. ABDOMEN: Benign. Bowel sounds positive. GENITALIA/RECTUM: Bay absent. BACK/EXTREMITIES: Edema 0+. NEUROLOGICAL: Alert and motor intact. SKIN: LYMPHATICS: LABORATORY DATA: Labs show hemoglobin 12.5. ASSESSMENT AND PLAN: 1. Stage 6 chronic kidney disease, continue hemodialysis. 2. Hypertension, stable. 3. Anemia, stable. 4. Medication based on GFR appropriate. 5. Discharge planning is in progress. Job ID: [id number]
--- NOTE | 2018-03-04 14:39 | PDOC.PN ---
- Subjective Encounter Start Date: 03/04/18 Encounter Start Time: 14:36 Subjective: feels OK. Still w pain in feet,bilateral -: more pain when walks - Objective Resuscitation Status - Order Detail: 02/23/18 13:46 Resuscitation Status Routine Resuscitation Status: DNAR: NO Resuscitation Discussed with: patient KOBI Reviewed: Yes Vital Signs & Weight: Vital Signs (12 hours) Temp Pulse Resp BP BP BP Pulse Ox 03/04/18 11:18 98.5 F 99 17 90/59 L 100 03/04/18 08:18 106 H 92/64 03/04/18 08:00 94 L 03/04/18 05:42 98.3 F 106 H 16 119/81 94 L Weight Admit Weight 266 lb 12.8 oz Weight 263 lb 12.8 oz I&O: 03/03/18 03/04/18 03/05/18 06:59 06:59 06:59 Intake Total 720 800 240 Output Total 300 Balance 720 500 240 Result Diagrams: 03/04/18 12:04 02/27/18 04:35 Phys Exam - Physical Examination Constitutional: NAD HEENT: PERRLA, moist MMs, sclera anicteric, oral pharynx no lesions Neck: no nodes, no JVD, supple, full ROM Respiratory: no wheezing, no rales, no rhonchi, clear to auscultation bilateral Cardiovascular: RRR, no significant murmur Gastrointestinal: soft, non-tender, no distention, positive bowel sounds Musculoskeletal: no edema, pulses present no erythem or swelling in feet ,tender to touch both feet ,all toes Neurological: non-focal, normal sensation, moves all 4 limbs Psychiatric: normal affect, A&O x 3 Skin: no rash Dx/Plan (1) Acute worsening of stage 4 chronic kidney disease Code(s): N18.4 - CHRONIC KIDNEY DISEASE, STAGE 4 (SEVERE) Status: Acute (2) Foot pain Code(s): M79.673 - PAIN IN UNSPECIFIED FOOT Status: Acute Comment: on PRN tramadol - Plan PT/OT, DVT proph w/SCDs trial of colchicine at low dose,though doubt it is gout -: monitor. encouraged to ambulate -: DC home in am * . Review of Systems - Review of Systems Constitutional: weakness, malaise. negative: fever, chills, sweats, other ENT: negative: Ear Pain, Ear Discharge, Nose Pain, Nose Discharge, Nose Congestion, Mouth Pain, Mouth Swelling, Throat Pain, Throat Swelling, Other Respiratory: negative: Cough, Dry, Shortness of Breath, Hemoptysis, SOB with Excertion, Pleuritic Pain, Sputum, Wheezing Cardiovascular: negative: chest pain, palpitations, orthopnea, paroxysmal nocturnal dyspnea, edema, light headedness, other Gastrointestinal: negative: Nausea, Vomiting, Abdominal Pain, Diarrhea, Constipation, Melena, Hematochezia, Other Genitourinary: negative: Dysuria, Frequency, Incontinence, Hematuria, Retention , Other Neurological: negative: Weakness, Numbness, Incoordination, Change in Speech, Confusion, Seizures, Other - Medications/Allergies Allergies/Adverse Reactions: Allergies Allergy/AdvReac Type Severity Reaction Status Date / Time No Known Allergies Allergy Unverified 02/22/18 01:25 Medications: Current Medications Acetaminophen (Tylenol) 1,000 mg PO Q6H PRN PRN Reason: Moderate to Severe Pain (6-10) Last Admin: 03/03/18 18:07 Dose: 1,000 mg Bisacodyl (Dulcolax) 10 mg PO DAILYPRN PRN PRN Reason: Constipation Carvedilol (Coreg) 12.5 mg PO BID [facility] Last Admin: 03/04/18 08:18 Dose: 12.5 mg Clonidine (Catapres) 0.1 mg PO Q4H PRN PRN Reason: Hypertension Last Admin: 02/25/18 03:04 Dose: 0.1 mg Colchicine (Colcrys) 0.3 mg PO BID [facility] Ergocalciferol (Drisdol) 1.25 mg PO Q7DAYS [facility] Last Admin: 03/01/18 16:09 Dose: Not Given Heparin Sodium (Porcine) (Heparin) 5,000 units SC BID [facility] Last Admin: 03/04/18 08:18 Dose: 5,000 units Hydralazine HCl (Apresoline) 10 mg SLOW IVP Q4H PRN PRN Reason: SBP GREATER THAN 160 Last Admin: 02/25/18 04:33 Dose: 10 mg Hydralazine HCl (Apresoline) 50 mg PO BID [facility] Last Admin: 03/04/18 08:18 Dose: 50 mg Nifedipine (Procardia Xl) 60 mg PO DAILY [facility] Last Admin: 03/04/18 08:18 Dose: 60 mg Ondansetron HCl (Zofran Odt) 4 mg PO Q6H PRN PRN Reason: Nausea/Vomiting Ondansetron HCl (Zofran) 4 mg IVP Q6H PRN PRN Reason: Nausea/Vomiting Last Admin: 02/22/18 21:00 Dose: 4 mg Senna/Docusate Sodium (Senokot S) 2 tab PO BID PRN PRN Reason: Constipation Sodium Chloride (Flush - Normal Saline) 10 ml IVF Q12HR PRN PRN Reason: Saline Flush Last Admin: 03/04/18 08:18 Dose: 10 ml Sodium Chloride (Flush - Normal Saline) 10 ml IVF PRN PRN PRN Reason: Saline Flush Sodium Chloride (Flush - Normal Saline) 10 ml IVF PRN PRN PRN Reason: Saline Flush Tramadol HCl (Ultram) 50 mg PO Q6H PRN PRN Reason: Pain Last Admin: 02/24/18 20:42 Dose: 50 mg Tramadol HCl (Ultram) 100 mg PO Q6H PRN PRN Reason: Pain Last Admin: 03/03/18 13:02 Dose: 100 mg
[2018-03-04] MEDS: Acetaminophen 500 MG TAB PO PRN (20:16)
[2018-03-04] MEDS: Colchicine 0.3 MG TAB PO SCH (20:17)
[2018-03-05 06:53] LABS: Anion Gap 23 mmol/L (10-20); BUN (Urea Nitrogen) 86 mg/dL (7.0-18.7); Calc. Creatinine Clearance 16 mL/min (70-130); Calcium 9.1 mg/dL (7.8-10.44); Carbon Dioxide 19 mmol/L (22-29); Chloride 91 mmol/L (98-107); Estimated GFR-MDRD 5; Glucose 91 mg/dL (70-105); Potassium 3.9 mmol/L (3.5-5.1); Sodium 129 mmol/L (136-145)
[2018-03-05] MEDS: Carvedilol 6.25 MG TAB PO SCH ×2 (09:39→20:19)
[2018-03-05] MEDS: Colchicine 0.3 MG TAB PO SCH ×2 (09:39→20:20)
[2018-03-05] MEDS: Heparin 5,000 UNITS/ML VIAL SC SCH ×2 (09:40→20:20)
[2018-03-05] MEDS: hydrALAZINE 25 MG TAB PO SCH ×2 (09:40→20:21)
[2018-03-05] MEDS: NIFEdipine XL 60 MG TAB PO SCH (10:08)
--- NOTE | 2018-03-05 10:17 | PRG ---
DATE OF SERVICE: 03/05/2018 SUBJECTIVE: A 32-year-old female being seen for end-stage renal disease. The patient denies any nausea, vomiting, or chest pain. OBJECTIVE: CONSTITUTIONAL: The patient is awake and alert. VITAL SIGNS: Afebrile, pulse 101, breathing 16, and blood pressure 135/78. GENERAL APPEARANCE AND MENTAL STATUS: Fair. HEAD/NECK: Normocephalic. Atraumatic. EYES: EOMI. No deformity. EARS: Clear. No ulcers. NOSE: Intact. No lesions. MOUTH: Clear. No discharge. THROAT: Clear. No exudate. LUNGS: Clear. No crackles. CARDIAC: S1, S2. No rub. ABDOMEN: Benign. Bowel sounds positive. GENITALIA/RECTUM: [place] absent. BACK/EXTREMITIES: Edema 0+. NEUROLOGICAL: Alert and motor intact. SKIN: LYMPHATICS: ASSESSMENT AND PLAN: Stage 6 chronic kidney disease, stable. Hypertension, stable. Anemia, stable. Medication based on GFR appropriate. Job ID: [id number]
--- NOTE | 2018-03-05 13:48 | PDOC.PN ---
- Subjective Encounter Start Date: 03/05/18 Encounter Start Time: 13:46 Subjective: feels better today.feet pain improved - Objective Resuscitation Status - Order Detail: 03/05/18 11:47 Resuscitation Status Routine Resuscitation Status: FULL: Full Resuscitation Discussed with: discussed w pt again. MAR Reviewed: Yes Vital Signs & Weight: Vital Signs (12 hours) Temp Pulse Resp BP BP Pulse Ox 03/05/18 10:08 101 H 03/05/18 09:40 101 H 03/05/18 09:39 98/65 03/05/18 08:00 98.7 F 101 H 16 135/78 96 Weight Admit Weight 266 lb 12.8 oz Weight 263 lb 12.8 oz I&O: 03/04/18 03/05/18 03/06/18 06:59 06:59 06:59 Intake Total 800 585 480 Output Total 300 Balance 500 585 480 Result Diagrams: 03/04/18 12:04 03/05/18 06:02 Phys Exam - Physical Examination Constitutional: NAD HEENT: PERRLA, moist MMs, sclera anicteric, oral pharynx no lesions Neck: no nodes, no JVD, supple, full ROM Respiratory: no wheezing, no rales, no rhonchi, clear to auscultation bilateral Cardiovascular: RRR, no significant murmur, no rub Gastrointestinal: soft, non-tender, no distention, positive bowel sounds Musculoskeletal: no edema, pulses present Neurological: non-focal, normal sensation, moves all 4 limbs Psychiatric: normal affect, A&O x 3 Skin: no rash Dx/Plan (1) Acute worsening of stage 4 chronic kidney disease Code(s): N18.4 - CHRONIC KIDNEY DISEASE, STAGE 4 (SEVERE) Status: Acute (2) Foot pain Code(s): M79.673 - PAIN IN UNSPECIFIED FOOT Status: Acute Comment: on PRN tramadol.Started on cochicine yesterday. - Plan respiratory therapy, DVT proph w/SCDs sodium still low.will try fluid restriction -: taper cochicine from tomorrow. -: likbethany lux ein am if sodium better -: encouraged to ambulate -: Code status dicussed again.wants to change to full code * . Review of Systems - Review of Systems Constitutional: weakness. negative: fever, chills, sweats, malaise, other ENT: negative: Ear Pain, Ear Discharge, Nose Pain, Nose Discharge, Nose Congestion, Mouth Pain, Mouth Swelling, Throat Pain, Throat Swelling, Other Respiratory: negative: Cough, Dry, Shortness of Breath, Hemoptysis, SOB with Excertion, Pleuritic Pain, Sputum, Wheezing Cardiovascular: negative: chest pain, palpitations, orthopnea, paroxysmal nocturnal dyspnea, edema, light headedness, other Gastrointestinal: negative: Nausea, Vomiting, Abdominal Pain, Diarrhea, Constipation, Melena, Hematochezia, Other Genitourinary: negative: Dysuria, Frequency, Incontinence, Hematuria, Retention , Other Musculoskeletal: Foot Pain. negative: Neck Pain, Shoulder Pain, Arm Pain, Back Pain, Hand Pain, Leg Pain, Other Neurological: negative: Weakness, Numbness, Incoordination, Change in Speech, Confusion, Seizures, Other - Medications/Allergies Allergies/Adverse Reactions: Allergies Allergy/AdvReac Type Severity Reaction Status Date / Time No Known Allergies Allergy Unverified 02/22/18 01:25 Medications: Current Medications Acetaminophen (Tylenol) 1,000 mg PO Q6H PRN PRN Reason: Moderate to Severe Pain (6-10) Last Admin: 03/04/18 20:16 Dose: 1,000 mg Bisacodyl (Dulcolax) 10 mg PO DAILYPRN PRN PRN Reason: Constipation Carvedilol (Coreg) 12.5 mg PO BID [facility] [place] Last Admin: 03/05/18 09:39 Dose: 12.5 mg Clonidine (Catapres) 0.1 mg PO Q4H PRN PRN Reason: Hypertension Last Admin: 02/25/18 03:04 Dose: 0.1 mg Colchicine (Colcrys) 0.3 mg PO BID [facility] [place] Last Admin: 03/05/18 09:39 Dose: 0.3 mg Ergocalciferol (Drisdol) 1.25 mg PO Q7DAYS [facility] [place] Last Admin: 03/01/18 16:09 Dose: Not Given Heparin Sodium (Porcine) (Heparin) 5,000 units SC BID [facility] [place] Last Admin: 03/05/18 09:40 Dose: 5,000 units Hydralazine HCl (Apresoline) 10 mg SLOW IVP Q4H PRN PRN Reason: SBP GREATER THAN 160 Last Admin: 02/25/18 04:33 Dose: 10 mg Hydralazine HCl (Apresoline) 50 mg PO BID [facility] [place] Last Admin: 03/05/18 09:40 Dose: 50 mg Nifedipine (Procardia Xl) 60 mg PO DAILY [facility] [place] Last Admin: 03/05/18 10:08 Dose: 60 mg Ondansetron HCl (Zofran Odt) 4 mg PO Q6H PRN PRN Reason: Nausea/Vomiting Ondansetron HCl (Zofran) 4 mg IVP Q6H PRN PRN Reason: Nausea/Vomiting Last Admin: 02/22/18 21:00 Dose: 4 mg Senna/Docusate Sodium (Senokot S) 2 tab PO BID PRN PRN Reason: Constipation Sodium Chloride (Flush - Normal Saline) 10 ml IVF Q12HR PRN PRN Reason: Saline Flush Last Admin: 03/05/18 09:40 Dose: 10 ml Sodium Chloride (Flush - Normal Saline) 10 ml IVF PRN PRN PRN Reason: Saline Flush Sodium Chloride (Flush - Normal Saline) 10 ml IVF PRN PRN PRN Reason: Saline Flush Tramadol HCl (Ultram) 50 mg PO Q6H PRN PRN Reason: Pain Last Admin: 02/24/18 20:42 Dose: 50 mg Tramadol HCl (Ultram) 100 mg PO Q6H PRN PRN Reason: Pain Last Admin: 03/03/18 13:02 Dose: 100 mg
[2018-03-05 20:14] VITALS: BP 110/75; TEMP 98.4
[2018-03-06 07:57] LABS: Anion Gap 27 mmol/L (10-20); BUN (Urea Nitrogen) 112 mg/dL (7.0-18.7); Calc. Creatinine Clearance 15 mL/min (70-130); Calcium 8.7 mg/dL (7.8-10.44); Carbon Dioxide 16 mmol/L (22-29); Chloride 95 mmol/L (98-107); Estimated GFR-MDRD 4; Glucose 90 mg/dL (70-105); Potassium 3.9 mmol/L (3.5-5.1); Sodium 134 mmol/L (136-145)
[2018-03-06] MEDS: Colchicine 0.3 MG TAB PO SCH (08:49)
[2018-03-06] MEDS: Carvedilol 6.25 MG TAB PO SCH (08:49)
[2018-03-06] MEDS: hydrALAZINE 25 MG TAB PO SCH (08:49)
[2018-03-06] MEDS: Heparin 5,000 UNITS/ML VIAL SC SCH (08:49)
[2018-03-06] MEDS: NIFEdipine XL 60 MG TAB PO SCH (08:50)
--- NOTE | 2018-03-06 10:32 | PDOC.PN ---
- Subjective Encounter Start Date: 03/06/18 Encounter Start Time: 10:31 Subjective: seenn and examined in HD -: feels better. foot pain improved -: no new complaints - Objective Resuscitation Status - Order Detail: 03/05/18 11:47 Resuscitation Status Routine Resuscitation Status: FULL: Full Resuscitation Discussed with: discussed w pt again. MAR Reviewed: Yes Vital Signs & Weight: Weight Admit Weight 266 lb 12.8 oz Weight 263 lb 12.8 oz I&O: 03/05/18 03/06/18 03/07/18 06:59 06:59 06:59 Intake Total 585 1030 Balance 585 1030 Result Diagrams: 03/04/18 12:04 03/06/18 07:14 Additional Labs: Laboratory Tests 02/25/18 03/05/18 03/06/18 10:25 06:02 07:14 Sodium 136 129 L 134 L Phys Exam - Physical Examination Constitutional: NAD HEENT: PERRLA, moist MMs, sclera anicteric, oral pharynx no lesions Neck: no nodes, no JVD, supple, full ROM Respiratory: no wheezing, no rales, no rhonchi, clear to auscultation bilateral Cardiovascular: RRR, no significant murmur, no rub Gastrointestinal: soft, non-tender, no distention, positive bowel sounds Musculoskeletal: no edema, pulses present Neurological: non-focal, normal sensation, moves all 4 limbs Psychiatric: normal affect, A&O x 3 Skin: no rash Dx/Plan (1) Acute worsening of stage 4 chronic kidney disease Code(s): N18.4 - CHRONIC KIDNEY DISEASE, STAGE 4 (SEVERE) Status: Acute (2) Foot pain Code(s): M79.673 - PAIN IN UNSPECIFIED FOOT Status: Acute Comment: on PRN tramadol.Started on cochicine yesterday. (3) End stage renal disease Code(s): N18.6 - END STAGE RENAL DISEASE Status: Acute Comment: started on M -W-F dialysis - Plan DVT proph w/SCDs DC home today -: sodium better -: cont HD as an OP.set up done -: colchicine at lower dose for 5 more days.? gout.clinically better -: uninsured so HH/PT can not be arranged * . will arrange leila walker prior to DC HD stable Review of Systems - Review of Systems Constitutional: weakness, malaise. negative: fever, chills, sweats, other ENT: negative: Ear Pain, Ear Discharge, Nose Pain, Nose Discharge, Nose Congestion, Mouth Pain, Mouth Swelling, Throat Pain, Throat Swelling, Other Respiratory: negative: Cough, Dry, Shortness of Breath, Hemoptysis, SOB with Excertion, Pleuritic Pain, Sputum, Wheezing Cardiovascular: negative: chest pain, palpitations, orthopnea, paroxysmal nocturnal dyspnea, edema, light headedness, other Gastrointestinal: negative: Nausea, Vomiting, Abdominal Pain, Diarrhea, Constipation, Melena, Hematochezia, Other Genitourinary: negative: Dysuria, Frequency, Incontinence, Hematuria, Retention , Other Musculoskeletal: Foot Pain Neurological: negative: Weakness, Numbness, Incoordination, Change in Speech, Confusion, Seizures, Other - Medications/Allergies Allergies/Adverse Reactions: Allergies Allergy/AdvReac Type Severity Reaction Status Date / Time No Known Allergies Allergy Unverified 02/22/18 01:25 Medications: Current Medications Acetaminophen (Tylenol) 1,000 mg PO Q6H PRN PRN Reason: Moderate to Severe Pain (6-10) Last Admin: 03/04/18 20:16 Dose: 1,000 mg Bisacodyl (Dulcolax) 10 mg PO DAILYPRN PRN PRN Reason: Constipation Carvedilol (Coreg) 12.5 mg PO BID [facility] Last Admin: 03/06/18 08:49 Dose: Not Given Clonidine (Catapres) 0.1 mg PO Q4H PRN PRN Reason: Hypertension Last Admin: 02/25/18 03:04 Dose: 0.1 mg Colchicine (Colcrys) 0.3 mg PO BID [facility] Last Admin: 03/06/18 08:49 Dose: Not Given Ergocalciferol (Drisdol) 1.25 mg PO Q7DAYS [facility] Last Admin: 03/01/18 16:09 Dose: Not Given Heparin Sodium (Porcine) (Heparin) 5,000 units SC BID [facility] Last Admin: 03/06/18 08:49 Dose: Not Given Hydralazine HCl (Apresoline) 10 mg SLOW IVP Q4H PRN PRN Reason: SBP GREATER THAN 160 Last Admin: 02/25/18 04:33 Dose: 10 mg Hydralazine HCl (Apresoline) 50 mg PO BID [facility] Last Admin: 03/06/18 08:49 Dose: Not Given Nifedipine (Procardia Xl) 60 mg PO DAILY [facility] Last Admin: 03/06/18 08:50 Dose: Not Given Ondansetron HCl (Zofran Odt) 4 mg PO Q6H PRN PRN Reason: Nausea/Vomiting Ondansetron HCl (Zofran) 4 mg IVP Q6H PRN PRN Reason: Nausea/Vomiting Last Admin: 02/22/18 21:00 Dose: 4 mg Senna/Docusate Sodium (Senokot S) 2 tab PO BID PRN PRN Reason: Constipation Sodium Chloride (Flush - Normal Saline) 10 ml IVF Q12HR PRN PRN Reason: Saline Flush Last Admin: 03/05/18 09:40 Dose: 10 ml Sodium Chloride (Flush - Normal Saline) 10 ml IVF PRN PRN PRN Reason: Saline Flush Sodium Chloride (Flush - Normal Saline) 10 ml IVF PRN PRN PRN Reason: Saline Flush
--- NOTE | 2018-03-06 17:47 | PRG ---
DATE OF SERVICE: OBJECTIVE: GENERAL: Obese female, in no apparent distress. VITAL SIGNS: Temperature respiratory rate 16, blood pressure 110/75. DIAGNOSTIC DATA: Potassium is 3.9. BUN is 112, creatinine is 10. 3. ASSESSMENT AND PLAN: 1. End-stage renal disease, continue dialysis. The patient was seen during dialysis. Tolerating well. 2. Hypertension, stable. 3. Anemia, monitor hemoglobin. 4. Edema. dialysis as tolerated. Sent labs. Blood pressure is stable, tolerating dialysis well. Continue dialysis as tolerated. Job ID: [id number]
--- NOTE | 2018-03-07 04:58 | DIS ---
DATE OF ADMISSION: 02/21/2018 DATE OF DISCHARGE: 03/06/2018 CONDITION: At the time of discharge, stable and improved. PRIMARY CARE PHYSICIAN: Needs to establish at [facility]. DISCHARGE DIAGNOSES: 1. Acute worsening of chronic kidney disease. The patient was started on hemodialysis this hospitalization. 2. Bilateral foot pain, suspect gout flareup. 3. Uncontrolled hypertension, suspect essential hypertension. IN-HOUSE CONSULTATION: 1. Nephrology, Dr. Lima. 2. General Surgery, Dr. Levin. PROCEDURES DONE IN THE HOSPITAL: 1. Renal ultrasound upon presentation, which did not show left kidney. Right kidney was normal. 2. CT scan of the abdomen and pelvis which showed cholelithiasis and atrophic left kidney and right kidney with some edema and perinephric stranding, and stranding around proximal right ureter. 3. X-ray of the foot on 02/23/2018, which did not show any osseous changes just mild degenerative changes. 4. Marking ultrasound for fistula placement for dialysis. 5. Right IJ cuffed tunneled hemodialysis catheter, as well as left IJ central line and left Lukas fistula under ultrasound guidance by Dr. Levin on 02/24/2018. 6. Left arm primary fistula on 02/27/[address] Levin as her left Lukas fistula was thrombosed. 7. Starting and maintenance hemodialysis. DISCHARGE MEDICATIONS: 1. Carvedilol 12.5 mg p.o. b.i.d. 2. Hydralazine 50 mg p.o. b.i.d. 3. Nifedipine 60 mg daily. 4. Colchicine 0.3 mg daily for 5 more days. HISTORY OF PRESENTING ILLNESS: Ms. Wade is a 32-year-old female with past medical history of chronic kidney disease and nephrolithiasis, who presented to the emergency room with abnormal labs. She recently moved to our area and got her primary care set up at [facility] and underwent workup, and was referred to student records coordinator. Her renal function was grossly abnormal and she was sent to the hospital with regard to this. Her potassium was 5.2, BUN 56, creatinine of 6.78, hemoglobin 11.7. She was diagnosed with end-stage renal disease and was admitted for possible starting of hemodialysis. She was otherwise hemodynamically stable. Please see admission history and physical for further details. HOSPITAL COURSE: The patient underwent renal ultrasound and then a CT scan of the abdomen, which showed left renal atrophy. Dr. Lima saw the patient for Nephrology and General Surgery was consulted for dialysis catheter and fistula placement. This was done successfully by Dr. Levin and she was started on hemodialysis. She was started on appropriate medications for her blood pressure, which were titrated to her response. Outpatient dialysis was set up for her. She did have some complaints of foot pain bilaterally, hampering her physical therapy in the hospital. She had generalized weakness and exhibited no desire to participate with physical therapy whatsoever. Hypercoagulable panel was sent due to her thrombosed similar fistula, which largely is unremarkable but some of it is pending. As of this morning, she is significantly better with starting a trial of colchicine though I doubt it is gout. She will finish the colchicine quite quickly given end-stage renal disease. She will follow up with Nephrology, as well as primary care physician in the outpatient setting. [facility] has been arranged for her and her next appointment is tomorrow at 11:30 a.m. Dialysis was done prior to her discharge today as well. She was seen and examined prior to discharge, and all questions were answered and discharge plan was discussed with her. She verbalized understanding. She is strongly encouraged to ambulate. A walker was arranged for her through our [facility] as the patient is unfunded. Please see hospitalist progress note from today's date for further details including [id number] interaction. Job ID: [id number]
[2018-03-08 11:27] LABS: Factor VIII Test 639.3 % ACTIVE (56-157)
== END 2018-03-06 17:22 | disposition home or self-care (01) | DRG 673 ==
LOC: ERS 16:31 → ERHOLD 21:19 → 2NO 02-22 16:27 → SURG A 02-24 21:47 → T4-B 03-01 07:11
PROVIDERS: ADMIT Internal Medicine; ATTEND Internal Medicine
PROC: 02HV33Z Insertion of Infusion Device into Superior Vena Cava, Percutaneous Approach (ICD-10-PCS; principal; 2018-02-24)
PROC: 031C0ZF Bypass Left Radial Artery to Lower Arm Vein, Open Approach (ICD-10-PCS; 2018-02-24)
PROC: 0JH63XZ Insertion of Tunneled Vascular Access Device into Chest Subcutaneous Tissue and Fascia, Percutaneous Approach (ICD-10-PCS; 2018-02-24)
PROC: 5A1D70Z Performance of Urinary Filtration, Intermittent, Less than 6 Hours Per Day (ICD-10-PCS; 2018-02-25)
PROC: 031C0ZF Bypass Left Radial Artery to Lower Arm Vein, Open Approach (ICD-10-PCS; 2018-02-27)
PROC: 5A1D70Z Performance of Urinary Filtration, Intermittent, Less than 6 Hours Per Day (ICD-10-PCS; 2018-02-27)
DX: I12.0 Hypertensive chronic kidney disease with stage 5 chronic kidney disease or end stage renal disease (principal); N18.6 End stage renal disease; N17.9 Acute kidney failure, unspecified; Q60.0 Renal agenesis, unilateral; E87.2 Acidosis; Z68.41 Body mass index [BMI] 40.0-44.9, adult; T82.868A Thrombosis due to vascular prosthetic devices, implants and grafts, initial encounter; N25.81 Secondary hyperparathyroidism of renal origin; M10.9 Gout, unspecified; T39.395A Adverse effect of other nonsteroidal anti-inflammatory drugs [NSAID], initial encounter; I16.0 Hypertensive urgency; D63.1 Anemia in chronic kidney disease; Z66 Do not resuscitate; E88.81 Metabolic syndrome and other insulin resistance; M79.671 Pain in right foot; E55.9 Vitamin D deficiency, unspecified; E66.01 Morbid (severe) obesity due to excess calories; Z87.442 Personal history of urinary calculi; Z79.899 Other long term (current) drug therapy; Y83.2 Surgical operation with anastomosis, bypass or graft as the cause of abnormal reaction of the patient, or of later complication, without mention of misadventure at the time of the procedure
CPT/HCPCS: 36415; 36416; 71045; 74176; 76770; 80048; 80053; 80069; 81240; 81241; 82306; 83090; 83735; 83970; 84703; 85014; 85018; 85025; 85240; 85300; 85303; 85305; 85307; 85379; 85598; 85610; 85730; 86147; 86580; 86704; 86706; 86803; 87340; 90935; 93005; 93970; 96360; 96361; C1752; C1769; G0257; G0365; J0360; J0670; J1100; J1644; J2001; J2405; J2704; J2720; J3010; J3490; J7070; J7506; Q9967

== ENCOUNTER 2018-03-18 13:01 | Emergency (ER) | payer OTHER, SELFPAY ==
[2018-03-18 14:55] LABS: #Basophils 0.1 thou/uL (0.0-0.2); #Eosinphils 0.3 thou/uL (0.0-0.7); #Lymphocytes 1.9 thou/uL (1.20-3.40); #Monocytes 1.4 thou/uL (0.11-0.59); #Neutrophils 11.2 thou/uL (1.40-6.50); %Basophils 0.8 % (0.0-1.0); %Eosinophils 1.9 % (0.0-10.0); %Lymphocytes 12.8 % (21.0-51.0); %Monocytes 9.1 % (0.0-10.0); %Neutrophils 75.5 % (42.0-75.0); Hemoglobin 9.7 g/dL (12.0-16.0); Mean Corpuscular HGB CONC 33.4 g/dL (32.0-36.0); Mean Corpuscular Hemoglobin 30.6 pg (27.0-31.0); Mean Corpuscular Volume 91.6 fL (78.0-98.0); Mean Platelet Volume 6.6 fL (7.4-10.4); Platelet Count 518 thou/uL (130-400); RBC Distribution Width 10.2 % (11.5-14.5); Red Blood Cell (RBC) Count 3.15 mill/uL (4.20-5.40); White Blood Cell (WBC) Count 14.9 thou/uL (4.8-10.8)
[2018-03-18 15:02] LABS: INR-International Normal Ratio 1.1; PTT 33.8 SEC (22.9-36.1); Prothrombin Time 14.4 SEC (12.0-14.7)
[2018-03-18 15:15] LABS: ALT (SGPT) 8 U/L (8-55); AST (SGOT) 13 U/L (5-34); Albumin 3.7 g/dL (3.5-5.0); Alkaline Phosphatase 124 U/L (40-150); Anion Gap 15 mmol/L (10-20); BUN (Urea Nitrogen) 35 mg/dL (7.0-18.7); Bilirubin, Total 0.4 mg/dL (0.2-1.2); Calc. Creatinine Clearance 0 mL/min (70-130); Calcium 9.3 mg/dL (7.8-10.44); Carbon Dioxide 24 mmol/L (22-29); Chloride 102 mmol/L (98-107); Estimated GFR-MDRD 7; Globulin 4.3 g/dL (2.4-3.5); Glucose 98 mg/dL (70-105); Potassium 3.5 mmol/L (3.5-5.1); Sodium 137 mmol/L (136-145)
== END 2018-03-18 16:47 | disposition home or self-care (01) ==
LOC: ERS 13:01
DX: T82.41XA Breakdown (mechanical) of vascular dialysis catheter, initial encounter (principal); N18.6 End stage renal disease; Z79.899 Other long term (current) drug therapy
CPT/HCPCS: 36415; 80053; 85025; 85610; 85730; 93005

== ENCOUNTER 2018-03-20 08:40 | Emergency (ER) | payer OTHER, SELFPAY ==
[2018-03-20 10:05] LABS: Anion Gap 18 mmol/L (10-20); BUN (Urea Nitrogen) 47 mg/dL (7.0-18.7); Calc. Creatinine Clearance 0 mL/min (70-130); Calcium 9.2 mg/dL (7.8-10.44); Carbon Dioxide 20 mmol/L (22-29); Chloride 104 mmol/L (98-107); Estimated GFR-MDRD 6; Glucose 102 mg/dL (70-105); Potassium 3.6 mmol/L (3.5-5.1); Sodium 138 mmol/L (136-145)
== END 2018-03-20 10:30 | disposition home or self-care (01) ==
LOC: ERS 08:40
DX: N18.6 End stage renal disease (principal); Z87.442 Personal history of urinary calculi; Z79.899 Other long term (current) drug therapy
CPT/HCPCS: 36415; 80048; 99283

== ENCOUNTER 2018-03-24 13:02 | Day surgery (SDC) | payer SELFPAY ==
[2018-03-23 15:57] VITALS: BMI 36.9
[2018-03-24 13:54] LABS: #Basophils 0.1 thou/uL (0.0-0.2); #Eosinphils 0.3 thou/uL (0.0-0.7); #Lymphocytes 2.3 thou/uL (1.20-3.40); #Monocytes 1.1 thou/uL (0.11-0.59); #Neutrophils 8.3 thou/uL (1.40-6.50); %Basophils 0.7 % (0.0-1.0); %Eosinophils 2.3 % (0.0-10.0); %Lymphocytes 19.2 % (21.0-51.0); %Neutrophils 68.8 % (42.0-75.0); Mean Corpuscular HGB CONC 33.8 g/dL (32.0-36.0); Mean Corpuscular Hemoglobin 30.7 pg (27.0-31.0); Mean Corpuscular Volume 90.9 fL (78.0-98.0); Mean Platelet Volume 6.6 fL (7.4-10.4); Platelet Count 492 thou/uL (130-400); RBC Distribution Width 10.6 % (11.5-14.5); Red Blood Cell (RBC) Count 3.27 mill/uL (4.20-5.40)
[2018-03-24 14:28] LABS: Anion Gap 14 mmol/L (10-20); BUN (Urea Nitrogen) 38 mg/dL (7.0-18.7); Calc. Creatinine Clearance 18 mL/min (70-130); Calcium 9.4 mg/dL (7.8-10.44); Carbon Dioxide 24 mmol/L (22-29); Chloride 104 mmol/L (98-107); Estimated GFR-MDRD 6; Glucose 93 mg/dL (70-105); Potassium 3.9 mmol/L (3.5-5.1); Sodium 138 mmol/L (136-145)
[2018-03-24] MEDS ORDERED: Lidocaine 2% w/Epinephrine 1:200K 20 ML VIAL ONE (15:05)
[2018-03-24] MEDS ORDERED: Bupivacaine HCl 0.5%/Epinephrine 1:200,000/PF 30 ml Vial ONE (15:05)
[2018-03-24] MEDS ORDERED: Sodium Chloride 0.9% 30 ML ONE (15:05)
[2018-03-24] MEDS ORDERED: Heparin 0 ML ONE (15:05)
[2018-03-24] MEDS ORDERED: Heparin 10,000 UNITS/1 ML VIAL ONE (15:06)
[2018-03-24] MEDS ORDERED: PROPOFOL 200 MG/20 ML VIAL ONE (15:57)
[2018-03-24] MEDS ORDERED: CEFAZOLIN 2 GM/50 ML BAG ONE (16:05)
[2018-03-24] MEDS ORDERED: Fentanyl 100 MCG/2 ML VIAL ONE (16:52)
[2018-03-24] MEDS ORDERED: Midazolam HCl 2 mg/2 ml Vial ONE (16:52)
[2018-03-24] MEDS ORDERED: Ketamine 50 MG/ML (10ML VIAL) ONE (16:53)
[2018-03-24] MEDS ORDERED: PROPOFOL 40 ML ONE (16:53)
--- NOTE | 2018-03-24 18:05 | RAD ---
CHEST ONE VIEW 03/24/18 HISTORY: Postop dialysis catheter. COMPARISON: Radiograph 02/24/18. FINDINGS: A dialysis catheter is in place, tip in good position. Some atelectatic changes both lung bases. No p neumothorax. No acute osseous abnormality. IMPRESSION: Satisfactory position of the dialysis catheter. POS: [facility]
--- NOTE | 2018-03-24 23:57 | OP ---
DATE OF PROCEDURE: 03/24/2018 PREOPERATIVE DIAGNOSES: 1. End-stage renal disease. 2. Immature fistula, left arm. 3. Dysfunctional dialysis catheter, right IJ. POSTOPERATIVE DIAGNOSES: 1. End-stage renal disease. 2. Immature fistula, left arm. 3. Dysfunctional dialysis catheter, right IJ. PROCEDURE: Removal of old right internal jugular vein hemodialysis catheter and placement of new right IJ hemodialysis catheter, fluoroscopy used. ANESTHESIA: TIVA local 0.5% Marcaine with epinephrine, 30 mL mixed with 2% Xylocaine, 10 mL. DESCRIPTION OF PROCEDURE: The patient was taken to the operating room, where under intravenous sedation, the sutures removed from her old catheter and the general traction extracted the cuff from the subcutaneous tissue without adequate ingrowth. The chest and neck were then prepared with ChloraPrep, draped in routine fashion. Local anesthetic was infiltrated in the skin and subcutaneous tissue about the operative site. I then made an incision over the old IJ catheter in the right side of the neck and the catheter dissected free, controlled with hemostats and transected. Old catheter pulled out the tunnel and discarded. Area was prepared with ChloraPrep and draped in the routine fashion again. A new exit site selected. Stab incision was made using the tunneling device and pre-curved [employer] cuffed-tunneled hemodialysis catheter tunneled between 2 incisions, placed the fabric cuff beneath the skin exit site, and 2-0 nylon dressing secured the catheter and CHD sterile dressings applied. J-wire was then threaded through the old catheter which was removed and dilator and Peel-Away sheath placed over the J-wire into the internal jugular vein and superior vena cava. Dilator and J-wire were removed. Catheter was placed through the Peel-Away sheath and Peel-Away sheath removed. Platysma was approximated with 4-0 Monocryl and skin with subdermal 4-0 Monocryl, and each port aspirated of blood and flushed with saline solution and heparinized saline solution, 1000 units heparin per mL indicating volume of the port. The patient tolerated the procedure well as the fluoroscopic images revealed good line placement. Job ID: [id number]
== END 2018-03-24 18:33 | disposition home or self-care (01) ==
LOC: SDC 13:02
PROVIDERS: ATTEND Specialist
DX: T82.41XA Breakdown (mechanical) of vascular dialysis catheter, initial encounter (principal); N18.6 End stage renal disease; Z79.899 Other long term (current) drug therapy
CPT/HCPCS: 71045; 80048; 85025; C1752; C1769; J0670; J1644; J2250; J2704; J3010

== ENCOUNTER 2018-08-22 18:28 | Observation (INO) | payer MEDICARE, OTHER, SELFPAY ==
[2018-08-22 19:33] LABS: Hemoglobin 15.1 g/dL (12.0-16.0); Mean Corpuscular HGB CONC 33.7 g/dL (32.0-36.0); Mean Corpuscular Hemoglobin 32.1 pg (27.0-31.0); Mean Corpuscular Volume 95.1 fL (78.0-98.0); Mean Platelet Volume 6.7 fL (7.4-10.4); Platelet Count 296 thou/uL (130-400); RBC Distribution Width 12.9 % (11.5-14.5); Red Blood Cell (RBC) Count 4.72 mill/uL (4.20-5.40); White Blood Cell (WBC) Count 17.6 thou/uL (4.8-10.8)
[2018-08-22] MEDS ORDERED: Aspirin Chewable 81 MG TAB ONE (19:41)
--- NOTE | 2018-08-22 19:41 | RAD ---
PORTABLE CHEST ONE VIEW: 08/22/18 at 7:29 p.m. HISTORY: Chest pain. Patient on dialysis. FINDINGS: Comparison made with exam of 03/24/18. The heart size is normal. There is a right sided dialysis catheter. No lobar consolidation, pneumoth oraces, isaak pulmonary edema or pleural effusions are seen. IMPRESSION: No acute process. POS: [facility]
[2018-08-22 19:49] LABS: BHCG - Serum Negative (NEGATIVE); Pregs Control Background? CLEAR/WHITE (CLR/WHITE); Pregs Control Bar Appear? YES (CONTROL BAR)
[2018-08-22 19:51] LABS: ALT (SGPT) 19 U/L (8-55); AST (SGOT) 20 U/L (5-34); Alkaline Phosphatase 118 U/L (40-150); Anion Gap 18 mmol/L (10-20); BUN (Urea Nitrogen) 21 mg/dL (7.0-18.7); Bilirubin, Total 0.6 mg/dL (0.2-1.2); Calc. Creatinine Clearance 0 mL/min (70-130); Calcium 9.9 mg/dL (7.8-10.44); Carbon Dioxide 28 mmol/L (22-29); Chloride 93 mmol/L (98-107); Estimated GFR-MDRD 7; Globulin 4.6 g/dL (2.4-3.5); Glucose 136 mg/dL (70-105); Lipase 69 U/L (8-78); Potassium 3.1 mmol/L (3.5-5.1); Protein, Total 9.6 g/dL (6.0-8.3); Sodium 136 mmol/L (136-145)
[2018-08-22 19:55] LABS: Band 4 % (5-11); Lymphocytes 3 % (21-51); MDiff Complete? YES; Monocytes 4 % (0-10); Neutrophil 89 % (42-75); Platelet Morphology Comment Appears Adequate
[2018-08-22 22:38] LABS: Troponin I 0.013 ng/mL (< 0.028)
[2018-08-22] MEDS ORDERED: Ondansetron PF 4 MG/2 ML Vial IVP PRN (22:49)
[2018-08-22] MEDS ORDERED: Acetaminophen 325 MG TAB PO PRN (22:49)
[2018-08-22] MEDS ORDERED: Ondansetron ODT 4 MG TAB PO PRN (22:49)
[2018-08-22] MEDS ORDERED: Carvedilol 6.25 MG TAB PO SCH (23:15)
[2018-08-22] MEDS ORDERED: Sodium Chloride 0.9% 250 ML IV SCH (23:45)
[2018-08-23 02:07] LABS: Troponin I 0.031 ng/mL (< 0.028)
--- NOTE | 2018-08-23 04:22 | HP ---
PRIMARY CARE PHYSICIAN: [facility] in [place]. CHIEF COMPLAINT: Chest pain. HISTORY OF PRESENT ILLNESS: Ms. Wade is a pleasant 33-year-old female with past medical history of hypertension; sinus tachycardia; end-stage renal disease, on dialysis, who had presented to [facility] earlier today after she had an episode of chest pain, diaphoresis, and nausea after her run of dialysis earlier today. She states that this episode lasted for roughly 30 minutes, she had also reported some mild shortness of breath at that time. However, symptoms seemed to resolve after she had sat down and rested and was placed on oxygen. After she was transferred to the emergency department, she states that her symptoms resolved and she had stated that she was back to her baseline, she denied any fever, chills, any headache, blurred vision, dizziness. She had denied any palpitations, abdominal pain, change in stool, or any further urinary symptoms. She had denied any cough, any chest pain, shortness of breath, diaphoresis, nausea, or vomiting at that time. Her initial workup included a portable chest x-ray that was found to be normal, her serial troponins were also found to be negative x2. Serum was negative. Her creatinine was elevated at 6.48 with an estimated GFR of 7, which is also consistent with her underlying end-stage renal disease. She states that she sees Dr. Alcantar and she has dialysis on Tuesday, , and Tuesday. She is currently resting comfortably in bed and in no distress. At this time, she had denied any extensive cardiac history and had denied seeing any ditching machine engineer in the past. REVIEW OF SYSTEMS: All other systems reviewed and found to be negative unless mentioned in HPI. PAST MEDICAL HISTORY: Hypertension; end-stage renal disease, on dialysis; and history of kidney stones. PAST SURGICAL HISTORY: Lithotripsy; dialysis fistula in left upper arm; and dialysis port, right-sided chest. She also had a nephrectomy in 2018. PSYCHIATRIC HISTORY: None. SOCIAL HISTORY: The patient denies any alcohol, tobacco, or illicit drug use. She states that she lives at home with her family and her sister. KNOWN ALLERGIES: No known drug allergies. CURRENT HOME MEDICATIONS: Carvedilol 12.5 mg p.o. b.i.d. PHYSICAL EXAMINATION: VITAL SIGNS: Blood pressure 117/96, pulse 108, respirations 16, temperature 98.6 degrees Fahrenheit, and O2 saturations 100% on room air. GENERAL: The patient is awake, alert, and oriented x3. She is currently lying comfortably in bed and in no acute distress at this time. HEENT: Atraumatic and normocephalic. Pupils are round and reactive to light. Extraocular muscles are intact. Moist mucous membranes noted. NECK: Soft and supple. Trachea midline. CARDIOVASCULAR: Positive S1 and S2. Regular rate and rhythm. No murmur auscultated. Dialysis catheter noted on right subclavian. RESPIRATORY: Clear to auscultation bilaterally. No wheezes, rales, or rhonchi. ABDOMEN: Soft, nontender. Bowel sounds present. MUSCULOSKELETAL: Strength 5+ bilaterally, upper and lower extremities. Moves all extremities equal. Pedal and radial pulses palpable 2+ bilaterally. No edema noted. Fistula noted, left upper extremity with good bruit and thrill. NEUROLOGIC: Cranial nerves 2 through 12 grossly intact. No focal deficits noted. Speech intact and normal. Gait not assessed. SKIN: Warm, dry, and intact. No rashes. No ulceration noted. PSYCHIATRIC: Good mood and affect. LABORATORY DATA: WBC 17.6, RBC 4.72, hemoglobin 15.1, hematocrit 44.9, and platelets 296. Sodium 136, potassium 3.1, anion gap 18, BUN 21, creatinine 6.48, estimated GFR 7, glucose 136, calcium 9.9. Troponin 0.024, 0.013. Lipase 69. Serum negative. DIAGNOSTIC IMAGING: Portable chest x-ray showed no acute process. ASSESSMENT AND PLAN: 1. Chest pain, given the patient's history, this is likely noncardiac in nature; however, we will trend troponins, so far negative x2. EKG showing no changes. We will check a D-dimer along with TSH and a BNP due to the patient's shortness of breath during her episode. I would suspect that the patient's symptoms were likely secondary to the fluid removed during her dialysis. If the patient has another episode, we will also consider further workup with possible stress test and echocardiogram in the morning. However, I will leave this up to the day team to further determine. 2. Leukocytosis. The patient is currently asymptomatic at this time and no further signs of an infectious-like process at this time, we will recheck CBC in the morning. 3. Hypertension, continue patient's home carvedilol. 4. End-stage renal disease, on dialysis. Consult placed for Dr. Lima, Nephrology Services, the patient's primary warehouse engineer is Dr. Alcantar, and she usually goes for dialysis Tuesdays, , Saturdays. 5. Deep venous thrombosis and gastrointestinal prophylaxis. CODE STATUS: Full code. DISPOSITION: The patient will be placed on telemetry for further monitoring. She will be admitted under observation for further workup. However, if her symptoms remain stable and the patient has been stabilized, she will likely be discharged back home in the next 1 to 2 days. Job ID: [id number]
[2018-08-23 05:34] VITALS: BMI 40.8
[2018-08-23 05:47] LABS: #Eosinphils 0.1 thou/uL (0.0-0.7); #Lymphocytes 0.8 thou/uL (1.20-3.40); #Monocytes 0.7 thou/uL (0.11-0.59); #Neutrophils 8.6 thou/uL (1.40-6.50); %Basophils 0.4 % (0.0-1.0); %Eosinophils 1.3 % (0.0-10.0); %Neutrophils 83.3 % (42.0-75.0); Hemoglobin 13.6 g/dL (12.0-16.0); Mean Corpuscular HGB CONC 33.2 g/dL (32.0-36.0); Mean Corpuscular Hemoglobin 31.8 pg (27.0-31.0); Mean Corpuscular Volume 95.7 fL (78.0-98.0); Platelet Count 246 thou/uL (130-400); RBC Distribution Width 12.8 % (11.5-14.5); Red Blood Cell (RBC) Count 4.27 mill/uL (4.20-5.40); White Blood Cell (WBC) Count 10.3 thou/uL (4.8-10.8)
[2018-08-23 06:05] LABS: Anion Gap 19 mmol/L (10-20); BUN (Urea Nitrogen) 30 mg/dL (7.0-18.7); Calc. Creatinine Clearance 18 mL/min (70-130); Calcium 9.3 mg/dL (7.8-10.44); Carbon Dioxide 23 mmol/L (22-29); Chloride 98 mmol/L (98-107); Estimated GFR-MDRD 6; Glucose 119 mg/dL (70-105); Potassium 3.5 mmol/L (3.5-5.1); Sodium 136 mmol/L (136-145)
[2018-08-23 08:45] LABS: CKMB 0.6 ng/mL (0-6.6)
[2018-08-23] MEDS: Famotidine 20 MG TAB PO SCH (09:18)
[2018-08-23] MEDS: Carvedilol 6.25 MG TAB PO SCH ×3 (09:18→22:27)
[2018-08-23] MEDS: Heparin 5,000 UNITS/ML VIAL SC SCH ×3 (09:19→22:29)
[2018-08-23 09:45] LABS: Bilirubin Negative (Negative); Blood, Urine Moderate (Negative); Clarity Cloudy (Clear); Glucose, Urine (Dipstick) Negative (Negative); Leukocyte Large (Negative); Nitrite Negative (Negative); Protein, Urine (Dipstick) > or equal to 300 mg/dL (Neg-Trace); Urobilinogen 0.2 mg/dL (Less than 2)
[2018-08-23 10:03] LABS: Bacteria/HPF 4+ HPF (None Seen); RBC/HPF 0-3 HPF (0-3); Squamous Epithelial 0-3 HPF (0-3); WBC/HPF 21-50 HPF (0-3)
[2018-08-23 10:04] LABS: Urine Culture Reflex Yes Yes
--- NOTE | 2018-08-23 10:22 | PDOC.PN ---
- Subjective Encounter Start Date: 08/23/18 Encounter Start Time: 10:21 Subjective: Patient states she has had no further chest pain or sob. Feels well. -: Has not had pain like she had yesterday in the past. Reports fever/chills -: overnight and did have an elevated temp. Given Tylenol with improvement. Otherwise denies any symptoms. - Objective Resuscitation Status - Order Detail: 08/22/18 22:49 Resuscitation Status Routine Co-Sign Provider: Resuscitation Status: FULL: Full Resuscitation Vital Signs & Weight: Vital Signs (12 hours) Temp Pulse Resp BP BP Pulse Ox 08/23/18 07:57 98 F 98 16 135/64 95 08/23/18 04:25 99.6 F 102 H 24 H 95/54 L 94 L 08/23/18 03:20 101 F H 111 H 24 H 90/55 L 93 L 08/23/18 00:00 89 97/56 L 08/22/18 23:30 111 H 90/59 L 08/22/18 23:27 100 24 H 88/54 L 98 Weight Weight 253 lb I&O: 08/22/18 08/23/18 08/24/18 06:59 06:59 06:59 Intake Total 610 Balance 610 Result Diagrams: 08/23/18 05:26 08/23/18 05:26 Phys Exam - Physical Examination Constitutional: NAD HEENT: PERRLA, moist MMs, sclera anicteric, oral pharynx no lesions Neck: no nodes, supple, full ROM Respiratory: no wheezing, no rales, no rhonchi, clear to auscultation bilateral Cardiovascular: RRR, no significant murmur, no rub Gastrointestinal: soft, non-tender, no distention, positive bowel sounds Musculoskeletal: no edema, pulses present Neurological: non-focal, normal sensation, moves all 4 limbs Psychiatric: normal affect, A&O x 3 Skin: no rash, normal turgor, cap refill <2 seconds Dx/Plan (1) Chest tightness Code(s): R07.89 - OTHER CHEST PAIN Status: Acute Plan: Resolved, associated with sob, shortly after completing dialysis. No recurrent symptoms since but tachypneic 24, with sats at 94% on RA and tachycardic. Reportedly tachycardic at baseline. UA +, UCx pending. WCC normal. Lactic acid added on. Temp last night, continue to monitor temp. Hold antibiotics for now and continue to monitor. Continue to monitor BP. (80s systolic last night, given 250 cc bolus, much improved this morning). CXR normal. Slightly elevated d-dimer. Consider CTA, coordinate with dialysis. Troponins initially negative, 3rd and 4th indeterminate. Initial EKG unremarkable. Repeat Troponin at 11:00, and repeat EKG to assess for any dynamic changes. For possible stress test this afternoon, if troponin further elevated or concerning changes on EKG will need Cardiology consult. (2) ESRD on dialysis Code(s): N18.6 - END STAGE RENAL DISEASE; Z99.2 - DEPENDENCE ON RENAL DIALYSIS Status: Chronic (3) Obesity Code(s): E66.9 - OBESITY, UNSPECIFIED Status: Chronic (4) Hypertension Code(s): I10 - ESSENTIAL (PRIMARY) HYPERTENSION Status: Chronic Plan: Coreg held due to low BP. Continue to monitor BP. - Plan cont current plan of care, DVT proph w/SCDs Case discussed with Dr. Delgado who agrees with plan as above. * . Review of Systems - Review of Systems Constitutional: fever, chills, sweats ENT: negative: Ear Pain, Ear Discharge, Nose Pain, Nose Discharge, Nose Congestion, Mouth Pain, Mouth Swelling, Throat Pain, Throat Swelling, Other Respiratory: Shortness of Breath. negative: Cough (at end of dialysis, no recurring sob or chest tightness), Dry, Hemoptysis, SOB with Excertion, Pleuritic Pain, Sputum, Wheezing Cardiovascular: negative: chest pain, palpitations, orthopnea, paroxysmal nocturnal dyspnea, edema, light headedness, other Gastrointestinal: negative: Nausea, Vomiting, Abdominal Pain, Diarrhea, Constipation, Melena, Hematochezia Genitourinary: negative: Dysuria, Frequency, Incontinence, Hematuria, Retention Musculoskeletal: negative: Neck Pain, Shoulder Pain, Arm Pain, Back Pain, Hand Pain, Leg Pain, Foot Pain Skin: negative: Rash, Lesions, Bruising Neurological: negative: Weakness, Numbness, Incoordination, Change in Speech, Confusion, Seizures - Medications/Allergies Allergies/Adverse Reactions: Allergies Allergy/AdvReac Type Severity Reaction Status Date / Time No Known Allergies Allergy Verified 08/22/18 22:33 Medications: Current Medications Acetaminophen (Tylenol) 650 mg PO Q4H PRN PRN Reason: Headache/Fever/Mild Pain (1-3) Last Admin: 08/23/18 03:29 Dose: 650 mg Carvedilol (Coreg) 12.5 mg PO BID [facility] Famotidine (Pepcid) 20 mg PO DAILY [facility] Last Admin: 08/23/18 09:18 Dose: 20 mg Heparin Sodium (Porcine) (Heparin) 5,000 units SC TID [facility] Last Admin: 08/23/18 09:19 Dose: 5,000 units Ondansetron HCl (Zofran Odt) 4 mg PO Q6H PRN PRN Reason: Nausea/Vomiting Ondansetron HCl (Zofran) 4 mg IVP Q6H PRN PRN Reason: Nausea/Vomiting
--- NOTE | 2018-08-23 14:38 | CON ---
DATE OF CONSULTATION: 08/23/2018 CONSULTING PHYSICIAN: Dr. Espinoza. REASON FOR CONSULT: End-stage renal disease evaluation. REASON FOR ADMISSION: Chest pain. HISTORY OF PRESENT ILLNESS: This is a 33-year-old female with history of hypertension and end-stage renal disease, who came to the hospital with chest pain and has been evaluated. Nephrology consulted for maintenance hemodialysis. Her dialysis was yesterday, and she gets dialysis Tuesday, , and Tuesday. PAST MEDICAL HISTORY: Positive for hypertension, end-stage renal disease, kidney stones. PAST SURGICAL HISTORY: Lithotripsy, dialysis fistula placement, nephrectomy. HOME MEDICATIONS: Carvedilol. ALLERGIES: NO KNOWN DRUG ALLERGIES. SOCIAL HISTORY: No smoking, alcohol, or illicit drug use. FAMILY HISTORY: history of kidney disease. REVIEW OF SYSTEMS: CONSTITUTIONAL: Negative for weight loss or gain, ability to conduct usual activities. SKIN: Negative for rash, itching. EYES: Negative for double vision, pain. ENT/MOUTH: Negative for nose bleeding, neck stiffness, pain, tenderness. CARDIOVASCULAR: Negative for palpitations, dyspnea on exertion, orthopnea. RESPIRATORY: Negative for shortness of breath, wheezing, cough, hemoptysis, fever or night sweats. GASTROINTESTINAL: Negative for poor appetite, abdominal pain, heartburn, nausea, vomiting, constipation, or diarrhea. GENITOURINARY: Negative for urgency, frequency, dysuria, nocturia. MUSCULOSKELETAL: Negative for pain, swelling. NEUROLOGIC/PSYCHIATRIC: Negative for anxiety, depression. ALLERGY/IMMUNOLOGIC: Negative for skin rash, bleeding tendency. PHYSICAL EXAMINATION: GENERAL: This is an obese female in no apparent distress. VITAL SIGNS: Temperature 98.0, pulse 90, respiratory rate 18, blood pressure 134/61. HEENT: Atraumatic and normocephalic. Oral mucosa is moist. NECK: Supple. CV: S1 and S2 heard. Rate and rhythm regular. RESPIRATORY: Clear. GI: Abdomen is soft. MUSCULOSKELETAL: 1+ edema. DERMATOLOGIC: No skin rash. NEUROLOGIC: Alert and awake. PSYCHIATRIC: Normal mood and affect. LABORATORY DATA: Hemoglobin is 13.6. Potassium is 3.5, BUN is 30, creatinine is 7.9. ASSESSMENT AND PLAN: 1. End-stage renal disease. Continue on dialysis as tolerated. 2. Edema, controlled. 3. Hypertension, stable. 4. Anemia. Labs are stable. 5. We will continue on dialysis as tolerated. as tolerated. Job ID: [id number]
--- NOTE | 2018-08-23 16:22 | ULT ---
Venous duplex sonogram bilateral lower extremity HISTORY: Bilateral leg pain and edema. FINDINGS: Each common femoral vein and greater saphenous junction were evaluated along with the femor al, deep femoral, popliteal, and posterior tibial vein. There is good color and spectral Doppler flow, compression, and augmentation. IMPRESSION: No sonographic evidence of DVT within either lower extremity.
[2018-08-24 06:42] LABS: Anion Gap 16 mmol/L (10-20); BUN (Urea Nitrogen) 39 mg/dL (7.0-18.7); Calc. Creatinine Clearance 15 mL/min (70-130); Carbon Dioxide 25 mmol/L (22-29); Chloride 98 mmol/L (98-107); Estimated GFR-MDRD 5; Glucose 115 mg/dL (70-105); Potassium 3.3 mmol/L (3.5-5.1); Sodium 136 mmol/L (136-145)
[2018-08-24 06:50] LABS: Hemoglobin 12.5 g/dL (12.0-16.0); Mean Corpuscular HGB CONC 33.7 g/dL (32.0-36.0); Mean Corpuscular Hemoglobin 32.2 pg (27.0-31.0); Mean Corpuscular Volume 95.5 fL (78.0-98.0); Mean Platelet Volume 7.1 fL (7.4-10.4); Platelet Count 230 thou/uL (130-400); RBC Distribution Width 12.7 % (11.5-14.5); Red Blood Cell (RBC) Count 3.89 mill/uL (4.20-5.40); White Blood Cell (WBC) Count 6.9 thou/uL (4.8-10.8)
[2018-08-24] MEDS: Carvedilol 6.25 MG TAB PO SCH ×2 (08:24→21:55)
[2018-08-24] MEDS: Famotidine 20 MG TAB PO SCH (08:25)
[2018-08-24] MEDS: Heparin 5,000 UNITS/ML VIAL SC SCH ×3 (08:25→21:52)
[2018-08-24 09:11] LABS: Band 1 % (5-11); Eosinophils 1 % (0-10); Lymphocytes 41 % (21-51); MDiff Complete? YES; Monocytes 10 % (0-10); Neutrophil 47 % (42-75); RBC Morphology Normal
--- NOTE | 2018-08-24 11:38 | EKG ---
Test Reason : Blood Pressure : / mmHG Vent. Rate : 087 BPM Atrial Rate : 087 BPM P-R Int : 160 ms QRS Dur : 102 ms QT Int : 420 ms P-R-T Axes : 056 009 008 degrees QTc Int : 505 ms Normal sinus rhythm Prolonged QT Abnormal ECG Confirmed by NOA PENA ([id number]) on 08/24/2018 11:37:33 AM Referred By: TERRIE Confirmed By:NOA PENA
--- NOTE | 2018-08-24 12:10 | PRG ---
DATE OF SERVICE: 08/24/2018 SUBJECTIVE: Patient was seen and examined at bedside and overnight events noted. Patient denies any shortness of breath or chest pain or palpitation. No history of nausea or vomiting or diarrhea or fever or chills or cramps. OBJECTIVE: GENERAL: This is a well-built female in no apparent distress. VITAL SIGNS: Temperature 98.0. Heart rate 71. Respiratory rate 16. Blood pressure 136/71. HEENT: Atraumatic, normocephalic. Oral mucosa is moist NECK: Supple. CARDIOVASCULAR: S1, S2 heard. Rate and rhythm regular. RESPIRATORY: Clear to auscultation. GASTROINTESTINAL: Abdomen is soft. MUSCULOSKELETAL: No tenderness. No edema. DERMATOLOGIC: No skin rash. NEUROLOGIC: Alert and awake and oriented X3. No focal neurologic deficits. Moving all the extremities. PSYCHIATRIC: Mood and affect normal. LABORATORY DATA: Potassium is 3.3, BUN is 39, creatinine is 9.5. ASSESSMENT AND PLAN: 1. End-stage renal disease. Continue on dialysis Tuesday, , and Tuesday as tolerated. 2. Edema. 3. Hypertension. 4. Anemia. 5. We will continue on dialysis as tolerated. Job ID: [id number]
[2018-08-24] MEDS ORDERED: Heparin 10,000 UNITS/1 ML VIAL ONE (15:00)
--- NOTE | 2018-08-24 15:44 | PDOC.PN ---
- Subjective Encounter Start Date: 08/24/18 Encounter Start Time: 15:41 Subjective: Patient without any complaints. No chest pain or sob. No n/v/d. -: Denies any abdominal pain. Undergoing dialysis. States her BP -: usually runs in 100s and she denies any dizziness. No fevers or chills. - Objective Resuscitation Status - Order Detail: 08/22/18 22:49 Resuscitation Status Routine Co-Sign Provider: Resuscitation Status: FULL: Full Resuscitation Vital Signs & Weight: Vital Signs (12 hours) Temp Pulse Resp BP Pulse Ox 08/24/18 11:49 98.1 F 71 18 112/59 L 93 L 08/24/18 08:05 98 F 70 16 136/71 96 08/24/18 04:44 97.8 F 72 21 H 95/56 L 97 Weight Weight 255 lb 11.779 oz I&O: 08/23/18 08/24/18 08/25/18 06:59 06:59 06:59 Intake Total 610 1000 Output Total 300 Balance 610 700 Result Diagrams: 08/24/18 05:37 08/24/18 05:37 Phys Exam - Physical Examination Constitutional: NAD HEENT: PERRLA, moist MMs, sclera anicteric Neck: supple, full ROM Respiratory: clear to auscultation bilateral Cardiovascular: RRR Gastrointestinal: soft, non-tender, no distention Musculoskeletal: no edema, pulses present Neurological: normal sensation, moves all 4 limbs Psychiatric: normal affect, A&O x 3 Skin: no rash, normal turgor Dx/Plan (1) Chest tightness Code(s): R07.89 - OTHER CHEST PAIN Status: Resolved (2) ESRD on dialysis Code(s): N18.6 - END STAGE RENAL DISEASE; Z99.2 - DEPENDENCE ON RENAL DIALYSIS Status: Chronic (3) Obesity Code(s): E66.9 - OBESITY, UNSPECIFIED Status: Chronic (4) Hypertension Code(s): I10 - ESSENTIAL (PRIMARY) HYPERTENSION Status: Chronic - Plan cont current plan of care, DVT proph w/SCDs Awaiting results of Echo and stress test. -: Tachypnea and tachycardia improved. -: Will discuss with attending if further imaging with CTA necessary, no -: clinical symptoms, if needed will need to coordinate with dialysis. * .
--- NOTE | 2018-08-24 16:11 | NM ---
NUCLEAR MEDICINE CARDIAC PERFUSION EXAMINATION WITH EJECTION FRACTION: 08/24/18 HISTORY: 33-year-old female with chest pain and end-stage renal disease. TECHNIQUE: A two day nuclear medicine cardiac perfusion examination was performed. Rest images were obtained usi ng 29.1 millicuries of technetium 99m Sestamibi. Stress images were obtained using 33.9 millicuries o f technetium 99m Sestamibi and Adenosine. FINDINGS: There is a small sized, mild intensity fixed perfusion defect involving the anterior wall which may r epresent breast attenuation. No eversible perfusion defects are seen. Gated images show normal wall motion with ejection fraction of 47%. EDV is 99 mL. LHR is 0.3. TID is 0.86. IMPRESSION: No evidence of ischemia.
[2018-08-25 07:41] VITALS: BP 98/57; TEMP 97.8
[2018-08-25] MEDS: Carvedilol 6.25 MG TAB PO SCH (08:04)
[2018-08-25] MEDS: Famotidine 20 MG TAB PO SCH (08:04)
[2018-08-25] MEDS: Heparin 5,000 UNITS/ML VIAL SC SCH (08:04)
[2018-08-25 08:32] LABS: #Basophils 0.1 thou/uL (0.0-0.2); #Eosinphils 0.2 thou/uL (0.0-0.7); #Lymphocytes 2.4 thou/uL (1.20-3.40); #Neutrophils 3.9 thou/uL (1.40-6.50); %Basophils 1.1 % (0.0-1.0); %Lymphocytes 31.9 % (21.0-51.0); %Monocytes 13.4 % (0.0-10.0); %Neutrophils 50.6 % (42.0-75.0); Hemoglobin 13.4 g/dL (12.0-16.0); Mean Corpuscular HGB CONC 33.3 g/dL (32.0-36.0); Mean Corpuscular Hemoglobin 31.7 pg (27.0-31.0); Mean Corpuscular Volume 95.3 fL (78.0-98.0); Mean Platelet Volume 7.1 fL (7.4-10.4); Platelet Count 267 thou/uL (130-400); RBC Distribution Width 12.7 % (11.5-14.5); Red Blood Cell (RBC) Count 4.21 mill/uL (4.20-5.40); White Blood Cell (WBC) Count 7.6 thou/uL (4.8-10.8)
[2018-08-25 08:53] LABS: Anion Gap 17 mmol/L (10-20); BUN (Urea Nitrogen) 29 mg/dL (7.0-18.7); Calc. Creatinine Clearance 19 mL/min (70-130); Carbon Dioxide 25 mmol/L (22-29); Chloride 98 mmol/L (98-107); Estimated GFR-MDRD 6; Glucose 123 mg/dL (70-105); Potassium 3.6 mmol/L (3.5-5.1); Sodium 136 mmol/L (136-145)
[2018-08-25] MEDS ORDERED: Cefdinir 300 MG CAP PO SCH ×2 (09:00)
--- NOTE | 2018-08-25 14:41 | PRG ---
DATE OF SERVICE: 08/25/2018 SUBJECTIVE: Patient was seen and examined at bedside and overnight events noted. Patient denies any shortness of breath or chest pain or palpitation. No history of nausea or vomiting or diarrhea or fever or chills or cramps. OBJECTIVE: GENERAL: This is an obese female, in no apparent distress. VITAL SIGNS: Temperature 97.8. Heart rate 80. Respiratory rate 20. Blood pressure 98/57. HEENT: Atraumatic, normocephalic. Oral mucosa is moist NECK: Supple. CARDIOVASCULAR: S1, S2 heard. Rate and rhythm regular. RESPIRATORY: Clear to auscultation. GASTROINTESTINAL: Abdomen is soft. MUSCULOSKELETAL: No tenderness. No edema. DERMATOLOGIC: No skin rash. NEUROLOGIC: Alert and awake and oriented X3. No focal neurologic deficits. Moving all the extremities. PSYCHIATRIC: Mood and affect normal. LABORATORY DATA: Potassium 3.6, BUN is 29, creatinine is 7.6. ASSESSMENT: 1. End-stage renal disease. Continue on dialysis as tolerated on Tuesday, , and Tuesday. 2. Edema. 3. Hypertension. 4. Anemia. PLAN: We will plan to continue on dialysis as tolerated. Job ID: [id number]
== END 2018-08-25 11:44 | disposition home or self-care (01) ==
LOC: ERS 18:28 → 2SW 20:42
PROVIDERS: ADMIT Family Medicine; ATTEND Family Medicine
DX: R07.89 Other chest pain (principal); I12.0 Hypertensive chronic kidney disease with stage 5 chronic kidney disease or end stage renal disease; N18.6 End stage renal disease; D63.1 Anemia in chronic kidney disease; D72.829 Elevated white blood cell count, unspecified; Z79.899 Other long term (current) drug therapy; E66.9 Obesity, unspecified; Z68.41 Body mass index [BMI] 40.0-44.9, adult; Z99.2 Dependence on renal dialysis; Z90.5 Acquired absence of kidney; Z98.890 Other specified postprocedural states
CPT/HCPCS: 71045; 78452; 80048 ×3; 81001; 82553; 83605; 83690; 83880; 84145; 84484 ×4; 84703; 85025 ×3; 85379; 87040; 87077; 87086; 87149 ×2; 87186; 93005 ×2; 93017; 93306; 93970; 97139; 99285; A9500; G0378 ×3; 36415; 80053; 84443; 90935; 93010; G0257; J0153; J1644

== ENCOUNTER 2020-02-11 11:48 | Outpatient (CLI) | payer MEDICARE, MEDICAID ==
--- NOTE | 2020-02-11 12:41 | RAD ---
XR Chest Pa Lat STANDARD History: Assess for tuberculosis Comparison: Chest radiograph 2019 Findings: Lungs are mildly hypoinflated. No confluent airspace consolidation, pneumothorax or effusio n. No acute osseous abnormality. Impression: No evidence for active tuberculosis.
== END 2020-02-11 11:49 | disposition home or self-care (01) ==
LOC: SCSRAD 11:48
PROVIDERS: ATTEND Internal Medicine Nephrology
DX: Z11.1 Encounter for screening for respiratory tuberculosis (principal)
CPT/HCPCS: 71046